=== PATIENT | male | born 1970 | race Two or more races ===

== ENCOUNTER 2023-05-23 17:00 | Inpatient (IN) | payer MEDICAID ==
[~2023-05-23] VITALS: Ht 170.2 cm; Wt 79.6 kg
[~2023-05-23 17:00] MED LIST: CIP03OS EACHEYE
[2023-05-23 18:40] LABS: Alanine Aminotransferase 22 U/L (7-40); Albumin 3.2 g/dL (3.2-4.8); Alkaline Phosphatase 157 U/L (46-116); Anion Gap 7 (5-15); Aspartate Aminotransferase 23 U/L (13-40); BUN/Creatinine Ratio 5.7 (10.0-20.0); Blood Urea Nitrogen 65 mg/dL (9-23); Calcium 6.9 mg/dL (8.7-10.4); Carbon Dioxide 22 mmol/L (20-30); Chloride 109 mmol/L (98-107); Glucose 152 mg/dL (74-106); Magnesium 2.2 mg/dL (1.6-2.6); Potassium 5.5 mmol/L (3.5-5.1); Sodium 138 mmol/L (136-145)
[2023-05-23 18:41] LABS: Bilirubin, Total 0.3 mg/dL (0.2-1.0); Total Protein 5.5 g/dL (5.7-8.2)
[2023-05-23 18:45] LABS: Basophils # (auto) 0.1 10 ^3/uL (0-0.2); Basophils % (auto) 0.7 % (0.0-2.0); Eosinophils # (auto) 0.4 10 ^3/uL (0-0.8); Eosinophils % (auto) 4.4 % (0.0-7.0); Hematocrit 35.2 % (41.0-53.0); Hemoglobin 11.9 g/dL (13.5-17.5); Lymphocytes % (auto) 11.5 % (10.0-50.0); Mean Corpuscular Hemoglobin 30.6 pg (28.0-32.0); Mean Corpuscular Hgb Conc. 33.7 g/dL (32.0-36.0); Mean Corpuscular Volume 90.6 fL (80.0-100.0); Monocytes # (auto) 0.3 10 ^3/uL (0-1.3); Monocytes % (auto) 3.8 % (0.0-12.0); Neutrophils # (auto) 6.8 10 ^3/uL (1.6-8.6); Neutrophils % (auto) 79.6 % (37.0-80.0); Nucleated Red Blood Cells % 0.1 %; Red Blood Cells 3.88 10^6/uL (4.5-5.90); White Blood Cell 8.6 10^3/uL (4.4-10.8)
[2023-05-23] MEDS ORDERED: cefTRIAXone 1GM/50ML D5W 50 ML IV ONE (18:45)
[2023-05-23 18:49] LABS: INR 1.03 (0.9-1.15); Partial Thromboplastin Time 28.2 SEC (24.5-34.5); Prothrombin Time 10.8 sec (9.3-11.8)
[2023-05-23] MEDS ORDERED: FUROSEMIDE 100 MG/10ML VIAL IV ONE (19:00)
[2023-05-23] MEDS ORDERED: DEXTROSE (50%) 50ML SYRG IV PRN (20:15)
[2023-05-23] MEDS ORDERED: MORPHINE SULFATE INJ 2 MG/ml SYRG IV PRN (20:15)
[2023-05-23] MEDS ORDERED: NITROGLYCERIN 0.4 MG SL TAB SL PRN (20:15)
[2023-05-23] MEDS ORDERED: METOPROLOL TARTRATE 25 MG TAB PO ONE (20:30)
[2023-05-23 21:22] LABS: Erythrocyte Sedimentation Rate 91 mm/hr (0-20)
[2023-05-23] MEDS: ACCU-CHEK COMFORT CURVE STRIP VI SCH (23:51)
[2023-05-23] MEDS: InsuLIN REG 1unit/0.01ml Soln (100units/ml) SC SCH (23:57)
[2023-05-24] VITALS (8 sets, daily range): BP systolic 164–173; BP diastolic 94–110; PULSE 17–97; RESP 14–22; TEMP 97.7–98.5; O2SAT 94–98
[2023-05-24] MEDS: hydrALAZINE HCL 20 MG/ML VL IV PRN ×3 (02:18→23:16)
[2023-05-24 05:54] LABS: Basophils # (auto) 0.1 10 ^3/uL (0-0.2); Basophils % (auto) 0.6 % (0.0-2.0); Eosinophils # (auto) 1.2 10 ^3/uL (0-0.8); Eosinophils % (auto) 12.4 % (0.0-7.0); Hematocrit 33.5 % (41.0-53.0); Hemoglobin 11.2 g/dL (13.5-17.5); Lymphocytes # (auto) 0.8 10 ^3/uL (0.4-5.4); Lymphocytes % (auto) 8.8 % (10.0-50.0); Mean Corpuscular Hemoglobin 30.4 pg (28.0-32.0); Mean Corpuscular Hgb Conc. 33.6 g/dL (32.0-36.0); Mean Corpuscular Volume 90.6 fL (80.0-100.0); Monocytes # (auto) 0.5 10 ^3/uL (0-1.3); Monocytes % (auto) 5.1 % (0.0-12.0); Neutrophils # (auto) 6.9 10 ^3/uL (1.6-8.6); Neutrophils % (auto) 73.1 % (37.0-80.0); Red Blood Cells 3.69 10^6/uL (4.5-5.90); Red Cell Distribution Width 13.6 % (11.8-14.3); White Blood Cell 9.5 10^3/uL (4.4-10.8)
[2023-05-24] MEDS ORDERED: FUROSEMIDE 20 MG/2 ML VIAL IV SCH (06:00)
[2023-05-24 06:11] LABS: Alanine Aminotransferase 16 U/L (7-40); Albumin 3.1 g/dL (3.2-4.8); Alkaline Phosphatase 133 U/L (46-116); Anion Gap 8 (5-15); Aspartate Aminotransferase 19 U/L (13-40); BUN/Creatinine Ratio 5.3 (10.0-20.0); Blood Urea Nitrogen 62 mg/dL (9-23); Carbon Dioxide 22 mmol/L (20-30); Chloride 109 mmol/L (98-107); Glucose 81 mg/dL (74-106); Potassium 4.4 mmol/L (3.5-5.1); Sodium 139 mmol/L (136-145)
[2023-05-24 06:12] LABS: Bilirubin, Total 0.2 mg/dL (0.2-1.0); Total Protein 5.5 g/dL (5.7-8.2)
[2023-05-24 06:55] LABS: Triglycerides 134 mg/dL (< 150)
[2023-05-24 06:56] LABS: Cholesterol 226 mg/dL (< 200); LDL Cholesterol 166 mg/dL (< 100)
[2023-05-24 06:57] LABS: HDL Cholesterol 39 mg/dL (40-59)
[2023-05-24] MEDS: ACCU-CHEK COMFORT CURVE STRIP VI SCH ×4 (06:58→22:14)
[2023-05-24] MEDS: InsuLIN REG 1unit/0.01ml Soln (100units/ml) SC SCH ×4 (06:59→22:00)
[2023-05-24] MEDS ORDERED: ATORVASTATIN 20 MG TAB PO ONE (10:00)
[2023-05-24] MEDS ORDERED: LISINOPRIL 10 MG TAB PO SCH (10:00)
[2023-05-24] MEDS ORDERED: METOPROLOL TARTRATE 25 MG TAB PO SCH (10:00)
[2023-05-24] MEDS: FAMOTIDINE 20 MG TAB PO SCH (10:10)
[2023-05-24] MEDS: ENOXAPARIN SOD 30 MG/0.3 ML SYRINGE SC SCH (10:12)
[2023-05-24 10:18] LABS: Creatinine, Urine 58.45 mg/dL (30.0-125.0)
[2023-05-24 10:21] LABS: Protein, Urine 733.7 mg/dL (0.0-11.9)
[2023-05-24] MEDS ORDERED: LISINOPRIL 10 MG TAB PO ONE (14:30)
[2023-05-24 15:06] LABS: Urine Bacteria NONE SEEN /hpf (None Seen); Urine Blood 1+ /uL (Negative); Urine Clarity Clear (Clear); Urine Color Colorless (Yellow); Urine Mucus FEW (None Seen); Urine Protein, UAD 3+ (Negative); Urine Specific Gravity 1.012 (1.001-1.035); Urine Urobilinogen Normal (Negative); Urine WBC 2 /hpf (0 - 3); Urine pH 6.5 (5.0-8.0)
[2023-05-24] MEDS: FUROSEMIDE 20 MG/2 ML VIAL IV SCH (18:22)
[2023-05-24] MEDS: ATORVASTATIN 20 MG TAB PO SCH (22:13)
[2023-05-24] MEDS: METOPROLOL TARTRATE 25 MG TAB PO SCH (22:14)
[2023-05-25] VITALS (7 sets, daily range): BP systolic 137–167; BP diastolic 85–98; PULSE 74–83; RESP 18–20; TEMP 97.7–98.4; O2SAT 96–98
[2023-05-25 06:01] LABS: Basophils # (auto) 0.1 10 ^3/uL (0-0.2); Basophils % (auto) 0.6 % (0.0-2.0); Eosinophils # (auto) 1.1 10 ^3/uL (0-0.8); Eosinophils % (auto) 13.7 % (0.0-7.0); Hematocrit 31.7 % (41.0-53.0); Hemoglobin 10.7 g/dL (13.5-17.5); Lymphocytes # (auto) 1.4 10 ^3/uL (0.4-5.4); Lymphocytes % (auto) 17.3 % (10.0-50.0); Mean Corpuscular Hemoglobin 30.3 pg (28.0-32.0); Mean Corpuscular Hgb Conc. 33.7 g/dL (32.0-36.0); Mean Corpuscular Volume 90.1 fL (80.0-100.0); Monocytes # (auto) 0.6 10 ^3/uL (0-1.3); Monocytes % (auto) 7.4 % (0.0-12.0); Neutrophils # (auto) 4.9 10 ^3/uL (1.6-8.6); Red Blood Cells 3.52 10^6/uL (4.5-5.90); White Blood Cell 8.1 10^3/uL (4.4-10.8)
[2023-05-25 06:14] LABS: Anion Gap 9 (5-15); Carbon Dioxide 20 mmol/L (20-30); Chloride 109 mmol/L (98-107); Potassium 4.7 mmol/L (3.5-5.1); Sodium 138 mmol/L (136-145)
[2023-05-25 06:16] LABS: % Iron Saturation 25.8 % (20-55)
[2023-05-25 06:20] LABS: BUN/Creatinine Ratio 5.3 (10.0-20.0); Blood Urea Nitrogen 63 mg/dL (9-23); Glucose 91 mg/dL (74-106)
[2023-05-25 06:21] LABS: Magnesium 1.8 mg/dL (1.6-2.6)
[2023-05-25 06:22] LABS: Phosphorus 6.2 mg/dL (2.4-5.1)
[2023-05-25] MEDS: FUROSEMIDE 20 MG/2 ML VIAL IV SCH ×2 (06:27→18:00)
[2023-05-25] MEDS: ACCU-CHEK COMFORT CURVE STRIP VI SCH ×4 (06:42→21:57)
[2023-05-25] MEDS: InsuLIN REG 1unit/0.01ml Soln (100units/ml) SC SCH ×4 (06:42→22:21)
[2023-05-25 08:06] LABS: Complement C3 132 mg/dL (82-167)
[2023-05-25] MEDS: SEVELAMER 800 MG TAB PO SCH ×3 (09:12→17:59)
[2023-05-25] MEDS: LISINOPRIL 20 MG TAB PO SCH (10:20)
[2023-05-25] MEDS: METOPROLOL TARTRATE 25 MG TAB PO SCH (10:21)
[2023-05-25] MEDS: ENOXAPARIN SOD 30 MG/0.3 ML SYRINGE SC SCH (10:22)
[2023-05-25] MEDS ORDERED: CARVEDILOL 3.125 MG TAB PO ONE (10:30)
[2023-05-25 12:06] LABS: Anti-Centromere B Antibody <0.2 AI (0.0-0.9); Anti-Jo-1 Antibody <0.2 AI (0.0-0.9); Anti-dsDNA Antibody 2 IU/mL (0-9); Antichromatin Antibody 0.2 AI (0.0-0.9); Antiscleroderma-70 Antibody <0.2 AI (0.0-0.9); RNP Antibody <0.2 AI (0.0-0.9); Sjogren's Anti-SS-A Antibody <0.2 AI (0.0-0.9); Sjogren's Anti-SS-B Antibody <0.2 AI (0.0-0.9); Smith Antibody <0.2 AI (0.0-0.9)
[2023-05-25 12:34] LABS: Hepatitis B Surface Antigen Negative (Negative)
[2023-05-25] MEDS: NIFEdipine ER 30 MG TAB PO SCH ×2 (12:50→22:19)
[2023-05-25 12:53] LABS: Hepatitis A Ab IgM Negative; Hepatitis B Core IgM Negative
[2023-05-25 12:55] LABS: Hepatitis C Antibody Negative (Negative)
[2023-05-25] MEDS: SODIUM BICARBONATE 650 MG TAB PO SCH ×2 (16:42→22:20)
[2023-05-25] MEDS: CARVEDILOL 3.125 MG TAB PO SCH (22:20)
[2023-05-25] MEDS: ATORVASTATIN 20 MG TAB PO SCH (22:20)
[2023-05-26] VITALS (8 sets, daily range): BP systolic 113–139; BP diastolic 56–83; PULSE 72–79; RESP 16–20; TEMP 97.3–98.2; O2SAT 94–97
[2023-05-26] MEDS: ACCU-CHEK COMFORT CURVE STRIP VI SCH ×4 (06:01→22:51)
[2023-05-26] MEDS: FUROSEMIDE 20 MG/2 ML VIAL IV SCH ×2 (06:01→17:45)
[2023-05-26] MEDS: InsuLIN REG 1unit/0.01ml Soln (100units/ml) SC SCH ×4 (06:04→22:00)
[2023-05-26 06:22] LABS: Anion Gap 9 (5-15); Carbon Dioxide 21 mmol/L (20-30); Chloride 106 mmol/L (98-107); Potassium 4.4 mmol/L (3.5-5.1); Sodium 136 mmol/L (136-145)
[2023-05-26 06:24] LABS: Calcium 7.1 mg/dL (8.7-10.4)
[2023-05-26 06:28] LABS: Glucose 85 mg/dL (74-106)
[2023-05-26 06:29] LABS: BUN/Creatinine Ratio 5.3 (10.0-20.0); Blood Urea Nitrogen 65 mg/dL (9-23); Magnesium 1.9 mg/dL (1.6-2.6)
[2023-05-26 06:45] LABS: Hematocrit 33.6 % (41.0-53.0); Hemoglobin 11.2 g/dL (13.5-17.5); Mean Corpuscular Hgb Conc. 33.2 g/dL (32.0-36.0); Mean Corpuscular Volume 90.4 fL (80.0-100.0); Red Blood Cells 3.72 10^6/uL (4.5-5.90); Red Cell Distribution Width 13.7 % (11.8-14.3); White Blood Cell 8.1 10^3/uL (4.4-10.8)
[2023-05-26 07:48] LABS: Band Neutrophils % (manual) 0; Basophils % (manual) 0 (0.0-2.0); Blast Cells 0; Metamyelocytes % 0; Myelocytes % 0; Promyelocytes % 0; Reactive Lymphocytes 0
[2023-05-26] MEDS: LISINOPRIL 20 MG TAB PO SCH (10:36)
[2023-05-26] MEDS: SODIUM BICARBONATE 650 MG TAB PO SCH ×2 (10:36→22:57)
[2023-05-26] MEDS: SEVELAMER 800 MG TAB PO SCH ×3 (10:37→17:44)
[2023-05-26] MEDS: NIFEdipine ER 30 MG TAB PO SCH ×2 (10:37→22:43)
[2023-05-26] MEDS: CARVEDILOL 3.125 MG TAB PO SCH ×2 (10:37→22:59)
[2023-05-26] MEDS: FAMOTIDINE 20 MG TAB PO SCH (10:37)
[2023-05-26] MEDS: ENOXAPARIN SOD 30 MG/0.3 ML SYRINGE SC SCH (10:38)
[2023-05-26 11:06] LABS: Albumin 1.8 g/dL (2.9-4.4); Alpha-1-Globulin 0.2 g/dL (0.0-0.4); Alpha-2-Globulin 0.7 g/dL (0.4-1.0); Gamma Globulin 0.7 g/dL (0.4-1.8); Globulin Total 2.5 g/dL (2.2-3.9); Protein Total Serum 4.3 g/dL (6.0-8.5)
[2023-05-26 12:56] LABS: Eosinophils % (manual) 16 (0-7); Lymphocytes % (manual) 12 (10.0-50.0); Monocytes % (manual) 4 (0-12); Platelet Estimate Adequate
[2023-05-26 14:05] LABS: Cytoplasmic (C-ANCA) <1:20 titer (Neg:<1:20); Perinuclear (P-ANCA) <1:20 titer (Neg:<1:20)
[2023-05-26 17:05] LABS: Antimyeloperoxidase (MPO) Ab <0.2 units (0.0-0.9); Antiproteinase 3 (PR-3) Ab <0.2 units (0.0-0.9)
[2023-05-26] MEDS: ATORVASTATIN 20 MG TAB PO SCH (22:43)
[2023-05-27 05:00] VITALS: BP 113/64; PULSE 79; RESP 16; TEMP 98; O2SAT 96
[2023-05-27] MEDS: FUROSEMIDE 20 MG/2 ML VIAL IV SCH (05:35)
[2023-05-27] MEDS: ACCU-CHEK COMFORT CURVE STRIP VI SCH ×2 (05:45→12:00)
[2023-05-27] MEDS: InsuLIN REG 1unit/0.01ml Soln (100units/ml) SC SCH ×2 (05:48→12:02)
[2023-05-27 06:01] LABS: Hematocrit 28.3 % (41.0-53.0); Hemoglobin 9.7 g/dL (13.5-17.5); Mean Corpuscular Hemoglobin 30.5 pg (28.0-32.0); Mean Corpuscular Hgb Conc. 34.2 g/dL (32.0-36.0); Mean Corpuscular Volume 89.2 fL (80.0-100.0); Red Blood Cells 3.17 10^6/uL (4.5-5.90); Red Cell Distribution Width 13.4 % (11.8-14.3); White Blood Cell 8.6 10^3/uL (4.4-10.8)
[2023-05-27 06:10] LABS: Anion Gap 8 (5-15); Band Neutrophils % (manual) 0; Basophils % (manual) 0 (0.0-2.0); Blast Cells 0; Carbon Dioxide 22 mmol/L (20-30); Chloride 105 mmol/L (98-107); Metamyelocytes % 0; Myelocytes % 0; Potassium 4.5 mmol/L (3.5-5.1); Promyelocytes % 0; Reactive Lymphocytes 0; Sodium 135 mmol/L (136-145)
[2023-05-27 06:11] LABS: Calcium 6.7 mg/dL (8.7-10.4)
[2023-05-27 06:16] LABS: BUN/Creatinine Ratio 5.4 (10.0-20.0); Blood Urea Nitrogen 67 mg/dL (9-23); Glucose 105 mg/dL (74-106)
[2023-05-27 06:17] LABS: Magnesium 1.8 mg/dL (1.6-2.6)
[2023-05-27 06:19] LABS: Phosphorus 5.7 mg/dL (2.4-5.1)
[2023-05-27 06:30] LABS: Eosinophils % (manual) 21 (0-7); Lymphocytes % (manual) 24 (10.0-50.0); Monocytes % (manual) 4 (0-12); Platelet Estimate Adequate
[2023-05-27 08:00] VITALS: BP 135/84; PULSE 77; PULSE 81; RESP 20; TEMP 98.2; O2SAT 95
[2023-05-27] MEDS: SEVELAMER 800 MG TAB PO SCH ×2 (08:49→12:00)
[2023-05-27] MEDS: CARVEDILOL 3.125 MG TAB PO SCH (08:50)
[2023-05-27] MEDS: LISINOPRIL 20 MG TAB PO SCH (08:51)
[2023-05-27] MEDS: ENOXAPARIN SOD 30 MG/0.3 ML SYRINGE SC SCH (08:51)
[2023-05-27] MEDS: NIFEdipine ER 30 MG TAB PO SCH (08:51)
[2023-05-27] MEDS: SODIUM BICARBONATE 650 MG TAB PO SCH (08:51)
[2023-05-27] MEDS ORDERED: FURO1TAB31 PO (10:56)
[2023-05-27] MEDS ORDERED: CAR3125T PO (10:56)
[2023-05-27] MEDS ORDERED: LISI20TA56 PO (10:56)
[2023-05-27] MEDS ORDERED: ATO40T PO (10:56)
[2023-05-27] MEDS ORDERED: NIFE1TAB30 PO (10:56)
[2023-05-27] MEDS ORDERED: SEVE800T PO (11:58)
[2023-05-27 13:00] VITALS: BP 134/86; PULSE 75; RESP 20; TEMP 97.3; O2SAT 99
[2023-05-27 17:00] VITALS: BP 129/66; PULSE 56; RESP 18; TEMP 97.5; O2SAT 98
== END 2023-05-27 17:30 | disposition home or self-care (01) | DRG 194 ==
LOC: ER 17:00 → TELE 20:12 → TELE-EAST 05-24 11:03
PROVIDERS: ADMIT Internal Medicine; ATTEND Student in an Organized Health Care Education/Training Program
DX: I13.2 Hypertensive heart and chronic kidney disease with heart failure and with stage 5 chronic kidney disease, or end stage renal disease (principal); N17.0 Acute kidney failure with tubular necrosis; J18.9 Pneumonia, unspecified organism; N18.6 End stage renal disease; J91.8 Pleural effusion in other conditions classified elsewhere; E83.39 Other disorders of phosphorus metabolism; E11.22 Type 2 diabetes mellitus with diabetic chronic kidney disease; I50.23 Acute on chronic systolic (congestive) heart failure; I16.1 Hypertensive emergency; R80.9 Proteinuria, unspecified; R10.9 Unspecified abdominal pain; I37.1 Nonrheumatic pulmonary valve insufficiency; E78.5 Hyperlipidemia, unspecified; E03.9 Hypothyroidism, unspecified; E87.5 Hyperkalemia; Z83.3 Family history of diabetes mellitus; Z82.49 Family history of ischemic heart disease and other diseases of the circulatory system; Z80.51 Family history of malignant neoplasm of kidney
CPT/HCPCS: 36415; 71045; 74176; 76775; 80048; 80053; 80061; 80074; 81001; 82570; 82962; 83036; 83516; 83520; 83540; 83550; 83605; 83735; 83880; 83935; 83970; 84100; 84155; 84156; 84165; 84300; 84443; 84484; 85007; 85025; 85027; 85610; 85652; 85730; 86141; 86160; 86225; 86235; 86256; 93005; 93306; 93970; G0378; J0696; J1815

== ENCOUNTER 2023-09-15 08:44 | Inpatient (IN) | payer MEDICAID ==
[~2023-09-15] VITALS: Ht 167.6 cm; Wt 67.5 kg
[~2023-09-15 08:44] MED LIST changes: +ATO40T PO; +CAR3125T PO; +FURO1TAB31 PO; +LISI20TA56 PO; +NIFE1TAB30 PO; +SEVE800T PO
[2023-09-15 09:34] LABS: Hemoglobin 9.4 g/dL (13.5-17.5); Mean Corpuscular Hemoglobin 30.9 pg (28.0-32.0); Mean Corpuscular Hgb Conc. 33.7 g/dL (32.0-36.0); Mean Corpuscular Volume 91.7 fL (80.0-100.0); Red Blood Cells 3.05 10^6/uL (4.5-5.90); Red Cell Distribution Width 15.1 % (11.8-14.3); White Blood Cell 5.7 10^3/uL (4.4-10.8)
[2023-09-15 09:39] LABS: Band Neutrophils % (manual) 0; Basophils % (manual) 0 (0.0-2.0); Blast Cells 0; Metamyelocytes % 0; Myelocytes % 0; Promyelocytes % 0; Reactive Lymphocytes 0
[2023-09-15 10:01] LABS: Urine Bacteria NONE SEEN /hpf (None Seen); Urine Blood 2+ /uL (Negative); Urine Clarity Clear (Clear); Urine Color Yellow (Yellow); Urine Hyaline Cast FEW /lpf (0 - 2); Urine Protein, UAD 3+ (Negative); Urine Specific Gravity 1.018 (1.001-1.035); Urine Urobilinogen Normal (Negative); Urine WBC 2 /hpf (0 - 3); Urine pH 6.5 (5.0-8.0)
[2023-09-15 10:15] LABS: Alanine Aminotransferase 13 U/L (7-40); Alkaline Phosphatase 93 U/L (46-116); Anion Gap 15 (5-15); Aspartate Aminotransferase 23 U/L (13-40); BUN/Creatinine Ratio 6.9 (10.0-20.0); Bilirubin, Total 0.2 mg/dL (0.2-1.0); Calcium 8.4 mg/dL (8.5-10.1); Carbon Dioxide 15 mmol/L (20-30); Chloride 106 mmol/L (98-107); Glucose 76 mg/dL (74-106); Sodium 136 mmol/L (136-145); Total Protein 5.9 g/dL (5.7-8.2)
[2023-09-15 10:33] LABS: Blood Urea Nitrogen 125 mg/dL (9-23); Potassium 6.3 mmol/L (3.5-5.1)
[2023-09-15] MEDS ORDERED: InsuLIN REG 1unit/0.01ml Soln (100units/ml) IV ONE (11:15)
[2023-09-15] MEDS ORDERED: SODIUM BICARBONATE 8.4% INJ 50ML SYRINGE IV ONE (11:15)
[2023-09-15] MEDS ORDERED: ASPirin 81 mg TAB PO ONE (11:15)
[2023-09-15] MEDS ORDERED: CALCIUM GLUC 1,000mg/50ml-NS 50 ML IV ONE (11:15)
[2023-09-15] MEDS ORDERED: ALBUTEROL SULF 2.5 MG/0.5ML(0.5%) NEB SOLN NEB ONE (11:15)
[2023-09-15] MEDS ORDERED: FUROSEMIDE 40 MG/4 ML VIAL IV ONE (11:15)
[2023-09-15] MEDS ORDERED: NITROGLYCERIN 0.4MG/HR TOPICAL PATCH TD ONE (11:15)
[2023-09-15] MEDS ORDERED: DEXTROSE (50%) 50ML SYRG IV ONE (11:15)
[2023-09-15] MEDS ORDERED: ONDANSETRON HCL 4 MG/2 ML VIAL IV ONE (11:15)
[2023-09-15] MEDS ORDERED: SODIUM ZIRCONIUM CYCL 10 GM PAK PO ONE (11:15)
[2023-09-15] MEDS ORDERED: MORPHINE SULFATE 4 MG/ML SYR/VIAL IV PRN (11:15)
[2023-09-15 11:20] LABS: Eosinophils % (manual) 9 (0-7); Lymphocytes % (manual) 15 (10.0-50.0); Monocytes % (manual) 4 (0-12)
[2023-09-15 11:21] LABS: Platelet Estimate Decreased
[2023-09-15 12:00] VITALS: PULSE 91; RESP 13; O2SAT 97
[2023-09-15 12:17] LABS: Amphetamine Screen, Urine Neg (NEGATIVE); Barbiturate Scree,Urine Neg (NEGATIVE); Benzodiazephine Screen, Urine Neg (NEGATIVE)
[2023-09-15 12:18] LABS: Cannabinoid Screen, Urine Neg (NEGATIVE); Cocaine Screen, Urine Neg (NEGATIVE); Opiate Scree,Urine Neg (NEGATIVE); Phencyclidine Screen, Urine Neg (NEGATIVE)
[2023-09-15 12:18] LABS: Blood Alcohol 3.6 mg/dL (<10)
[2023-09-15] MEDS ORDERED: levoFLOXacin 500MG 100 ML IV ONE (12:45)
[2023-09-15] MEDS ORDERED: CLINDAMYCIN 600MG IV 50 ML IV ONE (12:45)
[2023-09-15 12:46] LABS: INR 1.08 (0.9-1.15); Partial Thromboplastin Time 33.3 SEC (24.5-34.5); Prothrombin Time 11.3 sec (9.3-11.8)
[2023-09-15 12:54] LABS: Magnesium 2.7 mg/dL (1.6-2.6)
[2023-09-15] MEDS ORDERED: NIFEdipine ER 30 MG TAB PO ONE (15:30)
[2023-09-15] MEDS ORDERED: NITROGLYCERIN 0.4 MG SL TAB SL PRN (15:30)
[2023-09-15] MEDS ORDERED: MORPHINE SULFATE INJ 2 MG/ml SYRG IV PRN (15:30)
[2023-09-15 15:37] LABS: Anion Gap 17 (5-15); Carbon Dioxide 13 mmol/L (20-30); Chloride 107 mmol/L (98-107); Sodium 137 mmol/L (136-145)
[2023-09-15 15:38] LABS: Calcium 7.8 mg/dL (8.5-10.1)
[2023-09-15 15:43] LABS: BUN/Creatinine Ratio 6.9 (10.0-20.0); Glucose 139 mg/dL (74-106)
[2023-09-15 15:47] LABS: Potassium 5.7 mmol/L (3.5-5.1)
[2023-09-15 15:48] LABS: Blood Urea Nitrogen 126 mg/dL (9-23)
[2023-09-15] MEDS: SEVELAMER 800 MG TAB PO SCH (18:36)
[2023-09-15] MEDS: FUROSEMIDE 40 MG/4 ML VIAL IV SCH (18:36)
[2023-09-15 19:42] VITALS: PULSE 74; RESP 16; O2SAT 96
[2023-09-15] MEDS ORDERED: ENOXAPARIN SOD 30 MG/0.3 ML SYRINGE SC ONE (22:15)
[2023-09-15] MEDS: ATORVASTATIN 20 MG TAB PO SCH (22:47)
[2023-09-15] MEDS: CARVEDILOL 3.125 MG TAB PO SCH (22:47)
[2023-09-15 22:48] LABS: Chloride 109 mmol/L (98-107); Sodium 138 mmol/L (136-145)
[2023-09-15 22:49] LABS: Anion Gap 15 (5-15); Carbon Dioxide 14 mmol/L (20-30)
[2023-09-15 22:50] LABS: Calcium 7.8 mg/dL (8.5-10.1)
[2023-09-15 22:54] LABS: BUN/Creatinine Ratio 6.8 (10.0-20.0); Glucose 57 mg/dL (74-106)
[2023-09-15 23:09] LABS: Blood Urea Nitrogen 125 mg/dL (9-23); Potassium 5.9 mmol/L (3.5-5.1)
[2023-09-16] VITALS (9 sets, daily range): BP systolic 90–166; BP diastolic 44–90; PULSE 54–73; RESP 16–20; TEMP 97.5–99; O2SAT 95–99
[2023-09-16] MEDS: FUROSEMIDE 40 MG/4 ML VIAL IV SCH ×2 (06:06→17:57)
[2023-09-16 07:06] LABS: Basophils # (auto) 0 10 ^3/uL (0-0.2); Eosinophils # (auto) 0.3 10 ^3/uL (0-0.8); Lymphocytes # (auto) 0.3 10 ^3/uL (0.4-5.4); Mean Corpuscular Hgb Conc. 33.4 g/dL (32.0-36.0); Monocytes # (auto) 0.2 10 ^3/uL (0-1.3); Monocytes % (auto) 3.5 % (0.0-12.0); Red Blood Cells 2.44 10^6/uL (4.5-5.90)
[2023-09-16 07:09] LABS: Basophils % (auto) 0.2 % (0.0-2.0); Eosinophils % (auto) 5.5 % (0.0-7.0); Hemoglobin 7.4 g/dL (13.5-17.5); Lymphocytes % (auto) 6.7 % (10.0-50.0); Mean Corpuscular Hemoglobin 30.1 pg (28.0-32.0); Mean Corpuscular Volume 90.2 fL (80.0-100.0); Neutrophils # (auto) 4.3 10 ^3/uL (1.6-8.6); Neutrophils % (auto) 84.1 % (37.0-80.0); Red Cell Distribution Width 14.8 % (11.8-14.3); White Blood Cell 5.1 10^3/uL (4.4-10.8)
[2023-09-16 07:17] LABS: Alanine Aminotransferase 13 U/L (7-40); Albumin 2.5 g/dL (3.2-4.8); Alkaline Phosphatase 77 U/L (46-116); Aspartate Aminotransferase 18 U/L (13-40); BUN/Creatinine Ratio 6.9 (10.0-20.0); Calcium 7.8 mg/dL (8.5-10.1); Chloride 109 mmol/L (98-107); Cholesterol 161 mg/dL (< 200); Creatine Kinase IFCC 318 U/L (46-171); LDL Cholesterol 102 mg/dL (< 100); Sodium 138 mmol/L (136-145); Triglycerides 112 mg/dL (< 150)
[2023-09-16 07:18] LABS: Bilirubin, Direct < 0.1 mg/dL (<0.3); Bilirubin, Total 0.2 mg/dL (0.2-1.0); HDL Cholesterol 26 mg/dL (40-59); Total Protein 4.9 g/dL (5.7-8.2)
[2023-09-16 07:19] LABS: % Iron Saturation 28.3 % (20-55)
[2023-09-16 07:36] LABS: Blood Urea Nitrogen 128 mg/dL (9-23); Glucose 45 mg/dL (74-106); Potassium 6.1 mmol/L (3.5-5.1)
[2023-09-16] MEDS ORDERED: CALCIUM GLUC 1,000mg/50ml-NS 50 ML IV ONE (08:00)
[2023-09-16] MEDS ORDERED: SODIUM ZIRCONIUM CYCL 10 GM PAK PO ONE ×2 (08:00→09:30)
[2023-09-16 08:05] LABS: Anion Gap 14 (5-15); Carbon Dioxide 15 mmol/L (20-30)
[2023-09-16 08:07] LABS: Phosphorus 9.4 mg/dL (2.4-5.1)
[2023-09-16] MEDS: SODIUM ZIRCONIUM CYCL 10 GM PAK PO SCH (08:22)
[2023-09-16] MEDS: cefTRIAXone 1GM/50ML D5W 50 ML IV SCH (08:23)
[2023-09-16] MEDS: SEVELAMER 800 MG TAB PO SCH ×3 (08:24→17:54)
[2023-09-16] MEDS: ASPirin 81 mg TAB PO SCH (08:31)
[2023-09-16 09:14] LABS: Magnesium 2.6 mg/dL (1.6-2.6)
[2023-09-16] MEDS: DOXYCYCLINE 100MG/250ML 250 ML IV SCH ×2 (09:30→21:33)
[2023-09-16] MEDS ORDERED: NIFEdipine ER 30 MG TAB PO SCH (10:00)
[2023-09-16] MEDS ORDERED: ENOXAPARIN SOD 30 MG/0.3 ML SYRINGE SC SCH (10:00)
[2023-09-16 10:18] LABS: Rapid Influenza A Negative (Negative); Rapid Influenza B Negative (Negative)
[2023-09-16 10:19] LABS: COVID19 ANTIGEN SOFIA FIA NEGATIVE (NEGATIVE)
[2023-09-16] MEDS: CARVEDILOL 3.125 MG TAB PO SCH ×2 (11:13→21:34)
[2023-09-16] MEDS ORDERED: SODIUM CHL 0.9% 1000 ML BAG XX ONE (12:00)
[2023-09-16] MEDS: ATORVASTATIN 20 MG TAB PO SCH (21:34)
[2023-09-16] MEDS: HEPARIN SODIUM (PORCINE) 5000 UNITS/ML 1ML VIAL SC SCH (21:47)
[2023-09-17 05:00] VITALS: BP 161/87; PULSE 71; RESP 18; TEMP 98.3; O2SAT 96
[2023-09-17] MEDS: FUROSEMIDE 40 MG/4 ML VIAL IV SCH ×2 (05:41→18:04)
[2023-09-17 08:10] VITALS: BP 158/90; PULSE 70; PULSE 71; RESP 16; RESP 18; TEMP 98.4; O2SAT 98
[2023-09-17 09:00] VITALS: BP 155/87; PULSE 69; RESP 20; TEMP 98.4; O2SAT 96
[2023-09-17 09:10] LABS: White Blood Cell 6.8 10^3/uL (4.4-10.8)
[2023-09-17 09:12] LABS: Hematocrit 21.8 % (41.0-53.0); Hemoglobin 7.2 g/dL (13.5-17.5); Mean Corpuscular Hemoglobin 30.1 pg (28.0-32.0); Mean Corpuscular Hgb Conc. 33.2 g/dL (32.0-36.0); Mean Corpuscular Volume 90.7 fL (80.0-100.0); Red Blood Cells 2.41 10^6/uL (4.5-5.90); Red Cell Distribution Width 14.9 % (11.8-14.3)
[2023-09-17 09:15] LABS: Basophils % (manual) 0 (0.0-2.0); Blast Cells 0; Metamyelocytes % 0; Myelocytes % 0; Promyelocytes % 0; Reactive Lymphocytes 0
[2023-09-17 09:23] LABS: Chloride 106 mmol/L (98-107); Sodium 135 mmol/L (136-145)
[2023-09-17 09:24] LABS: Anion Gap 15 (5-15); Carbon Dioxide 14 mmol/L (20-30)
[2023-09-17 09:25] LABS: Calcium 7.3 mg/dL (8.5-10.1)
[2023-09-17 09:29] LABS: BUN/Creatinine Ratio 6.7 (10.0-20.0); Glucose 79 mg/dL (74-106)
[2023-09-17 09:35] LABS: Blood Urea Nitrogen 123 mg/dL (9-23); Potassium 6.6 mmol/L (3.5-5.1)
[2023-09-17 09:36] LABS: Band Neutrophils % (manual) 1; Eosinophils % (manual) 19 (0-7); Monocytes % (manual) 7 (0-12)
[2023-09-17 09:37] LABS: Lymphocytes % (manual) 8 (10.0-50.0)
[2023-09-17 09:38] LABS: Anisocytosis Slight; Platelet Estimate Decreased
[2023-09-17] MEDS: SEVELAMER 800 MG TAB PO SCH ×3 (09:38→18:03)
[2023-09-17] MEDS: ASPirin 81 mg TAB PO SCH (09:38)
[2023-09-17] MEDS: SODIUM ZIRCONIUM CYCL 10 GM PAK PO SCH (09:38)
[2023-09-17] MEDS: DOXYCYCLINE 100MG/250ML 250 ML IV SCH ×2 (09:39→22:00)
[2023-09-17] MEDS: CALCIUM W/VIT D (600MG/400IU) TAB PO SCH (09:39)
[2023-09-17] MEDS: cefTRIAXone 1GM/50ML D5W 50 ML IV SCH (09:39)
[2023-09-17] MEDS: NIFEdipine ER 30 MG TAB PO SCH (09:47)
[2023-09-17] MEDS: CARVEDILOL 3.125 MG TAB PO SCH ×2 (09:47→22:43)
[2023-09-17] MEDS ORDERED: SENNA 8.6 MG TAB PO PRN (10:00)
[2023-09-17] MEDS ORDERED: SENNA 8.6 MG TAB PO ONE (10:00)
[2023-09-17] MEDS ORDERED: CALCIUM GLUC 1,000mg/50ml-NS 50 ML IV ONE (10:00)
[2023-09-17 10:02] LABS: Magnesium 2.5 mg/dL (1.6-2.6)
[2023-09-17] MEDS: ONDANSETRON HCL 4 MG/2 ML VIAL IV PRN ×3 (10:05→23:14)
[2023-09-17] MEDS ORDERED: FUROSEMIDE 40 MG/4 ML VIAL IV ONE (10:15)
[2023-09-17] MEDS: HEPARIN SODIUM (PORCINE) 5000 UNITS/ML 1ML VIAL SC SCH ×2 (10:16→22:51)
[2023-09-17 13:00] VITALS: BP 163/92; PULSE 71; RESP 20; TEMP 97.2; O2SAT 97
[2023-09-17 20:00] VITALS: PULSE 68; PULSE 84; RESP 16; O2SAT 92
[2023-09-17 22:00] VITALS: BP 149/91; PULSE 69; RESP 16; TEMP 97.9; O2SAT 94
[2023-09-17] MEDS: ATORVASTATIN 20 MG TAB PO SCH (22:45)
[2023-09-18] VITALS (7 sets, daily range): BP systolic 111–158; BP diastolic 62–84; PULSE 61–72; RESP 16–19; TEMP 97–98.7; O2SAT 92–96
[2023-09-18 02:05] LABS: Immunoglobulin A 341 mg/dL (90-386); Immunoglobulin G, Serum 1070 mg/dL (603-1613); Immunoglobulin M 103 mg/dL (20-172)
[2023-09-18] MEDS: FUROSEMIDE 40 MG/4 ML VIAL IV SCH ×2 (05:22→18:15)
[2023-09-18 05:28] LABS: Hematocrit 23.8 % (41.0-53.0); Mean Corpuscular Hgb Conc. 33.4 g/dL (32.0-36.0); Mean Corpuscular Volume 89.8 fL (80.0-100.0); Red Blood Cells 2.65 10^6/uL (4.5-5.90); Red Cell Distribution Width 14.7 % (11.8-14.3); White Blood Cell 5.2 10^3/uL (4.4-10.8)
[2023-09-18 05:30] LABS: Basophils % (manual) 0 (0.0-2.0); Blast Cells 0; Chloride 105 mmol/L (98-107); Metamyelocytes % 0; Myelocytes % 0; Potassium 4.8 mmol/L (3.5-5.1); Promyelocytes % 0; Reactive Lymphocytes 0; Sodium 136 mmol/L (136-145)
[2023-09-18 05:31] LABS: Anion Gap 11 (5-15); Calcium 6.9 mg/dL (8.7-10.4); Carbon Dioxide 20 mmol/L (20-30)
[2023-09-18 05:36] LABS: BUN/Creatinine Ratio 7.3 (10.0-20.0); Glucose 104 mg/dL (74-106)
[2023-09-18 05:37] LABS: Magnesium 2.2 mg/dL (1.6-2.6)
[2023-09-18 06:53] LABS: Blood Urea Nitrogen 104 mg/dL (9-23)
[2023-09-18 07:44] LABS: Band Neutrophils % (manual) 1; Eosinophils % (manual) 13 (0-7); Lymphocytes % (manual) 11 (10.0-50.0); Monocytes % (manual) 5 (0-12)
[2023-09-18 07:45] LABS: Anisocytosis Slight; Platelet Estimate Decreased
[2023-09-18 09:06] LABS: Hepatitis B Core Total AB Negative (Negative)
[2023-09-18 09:43] LABS: Hepatitis A Total Antibody Positive (Negative); Hepatitis B Surface Antigen Negative (Negative); Hepatitis C Antibody Negative (Negative)
[2023-09-18 09:44] LABS: Hepatitis B Surface Antibody Negative (Negative)
[2023-09-18] MEDS: SODIUM ZIRCONIUM CYCL 10 GM PAK PO SCH (09:53)
[2023-09-18] MEDS: cefTRIAXone 1GM/50ML D5W 50 ML IV SCH (09:53)
[2023-09-18] MEDS: HEPARIN SODIUM (PORCINE) 5000 UNITS/ML 1ML VIAL SC SCH ×2 (09:53→22:00)
[2023-09-18] MEDS: DOXYCYCLINE 100 MG TAB/CAP PO SCH ×2 (09:53→21:14)
[2023-09-18] MEDS: ASPirin 81 mg TAB PO SCH (09:55)
[2023-09-18] MEDS: CALCIUM W/VIT D (600MG/400IU) TAB PO SCH (09:55)
[2023-09-18] MEDS: SEVELAMER 800 MG TAB PO SCH ×3 (09:56→18:15)
[2023-09-18] MEDS: NIFEdipine ER 30 MG TAB PO SCH (10:00)
[2023-09-18] MEDS: CARVEDILOL 3.125 MG TAB PO SCH ×2 (10:00→21:18)
[2023-09-18] MEDS ORDERED: SODIUM CHL 0.9% 1000 ML BAG XX ONE (10:45)
[2023-09-18] MEDS: IRON SUCROSE COMPLEX 100 ML IV SCH (12:00)
[2023-09-18] MEDS ORDERED: EPOETIN ALFA-EPBX 10,000 UNIT/1ML VIAL SC ONE (21:00)
[2023-09-18] MEDS: ATORVASTATIN 20 MG TAB PO SCH (21:14)
[2023-09-19] VITALS (11 sets, daily range): BP systolic 148–180; BP diastolic 70–101; PULSE 59–76; RESP 11–20; TEMP 97.5–99; O2SAT 92–100
[2023-09-19] MEDS: FUROSEMIDE 40 MG/4 ML VIAL IV SCH ×2 (05:15→16:57)
[2023-09-19 05:51] LABS: Hematocrit 23.3 % (41.0-53.0); Hemoglobin 7.8 g/dL (13.5-17.5); White Blood Cell 5.5 10^3/uL (4.4-10.8)
[2023-09-19 05:55] LABS: Mean Corpuscular Hemoglobin 29.6 pg (28.0-32.0); Mean Corpuscular Hgb Conc. 33.3 g/dL (32.0-36.0); Mean Corpuscular Volume 88.8 fL (80.0-100.0); Red Blood Cells 2.62 10^6/uL (4.5-5.90); Red Cell Distribution Width 14.7 % (11.8-14.3)
[2023-09-19 05:58] LABS: Band Neutrophils % (manual) 0; Basophils % (manual) 0 (0.0-2.0); Blast Cells 0; Metamyelocytes % 0; Myelocytes % 0; Promyelocytes % 0; Reactive Lymphocytes 0
[2023-09-19 06:03] LABS: Chloride 104 mmol/L (98-107); Potassium 4.1 mmol/L (3.5-5.1); Sodium 137 mmol/L (136-145)
[2023-09-19 06:04] LABS: Anion Gap 8 (5-15); Calcium 7.1 mg/dL (8.7-10.4); Carbon Dioxide 25 mmol/L (20-30)
[2023-09-19 06:09] LABS: BUN/Creatinine Ratio 5.2 (10.0-20.0); Glucose 79 mg/dL (74-106)
[2023-09-19 06:10] LABS: Blood Urea Nitrogen 51 mg/dL (9-23); Magnesium 2.1 mg/dL (1.6-2.6)
[2023-09-19 06:14] LABS: % Iron Saturation 42.5 % (20-55)
[2023-09-19] MEDS ORDERED: SODIUM CHL 0.9% 1000 ML BAG XX ONE (07:00)
[2023-09-19 07:38] LABS: Eosinophils % (manual) 14 (0-7); Lymphocytes % (manual) 13 (10.0-50.0); Monocytes % (manual) 2 (0-12); Platelet Estimate Decreased
[2023-09-19] MEDS: SEVELAMER 800 MG TAB PO SCH ×3 (08:00→16:57)
[2023-09-19] MEDS: SODIUM ZIRCONIUM CYCL 10 GM PAK PO SCH (10:00)
[2023-09-19] MEDS: CALCIUM W/VIT D (600MG/400IU) TAB PO SCH (10:00)
[2023-09-19] MEDS: DOXYCYCLINE 100 MG TAB/CAP PO SCH ×2 (10:00→22:45)
[2023-09-19] MEDS: CARVEDILOL 3.125 MG TAB PO SCH ×2 (11:16→22:00)
[2023-09-19] MEDS: cloNIDine HCL 0.1 MG TAB PO SCH ×2 (11:16→22:45)
[2023-09-19] MEDS: IRON SUCROSE COMPLEX 100 ML IV SCH (12:00)
[2023-09-19] MEDS ORDERED: HEPARIN SODIUM (PORCINE) 5000 UNITS/ML 1ML VIAL ONE (13:22)
[2023-09-19] MEDS ORDERED: MIDAZOLAM HCL 2MG/2ML 2ml VIAL (1mg/ml) ONE (13:22)
[2023-09-19] MEDS ORDERED: LIDOCAINE 2%HCL (LOCAL ANESTH.) INJ 20ML MDV ONE (13:22)
[2023-09-19] MEDS ORDERED: fentaNYL CITRATE 100 MCG/2 ML VL ONE (13:22)
[2023-09-19] MEDS ORDERED: ceFAZolin 1GM/50ML 50 ML IV ONE (13:42)
[2023-09-19] MEDS ORDERED: ONDANSETRON HCL 4 MG/2 ML VIAL ONE (14:19)
[2023-09-19] MEDS ORDERED: ARGATROBAN 250 MG in SODIUM CHL 0.9% 248.5 ML IV SCH (14:45)
[2023-09-19] MEDS ORDERED: FAMOTIDINE (10MG/ML) 2ML VL IV ONE (14:45)
[2023-09-19 16:33] LABS: INR 1.17 (0.9-1.15); Partial Thromboplastin Time 34.4 SEC (24.5-34.5); Prothrombin Time 12.2 sec (9.3-11.8)
[2023-09-19] MEDS: cefTRIAXone 1GM/50ML D5W 50 ML IV SCH (16:45)
[2023-09-19] MEDS: NIFEdipine ER 30 MG TAB PO SCH (16:56)
[2023-09-19] MEDS ORDERED: ALBUMIN 25% 100 ML IV PRN (18:00)
[2023-09-19] MEDS ORDERED: HEPARIN SODIUM (PORCINE) 5000 UNITS/ML 1ML VIAL IV ONE (18:00)
[2023-09-19] MEDS ORDERED: HEPARIN 1,000 UNITS/ml 1ML VIAL XX ONE ×2 (18:45→20:30)
[2023-09-19] MEDS ORDERED: EPOETIN ALFA-EPBX 10,000 UNIT/1ML VIAL SC ONE (21:00)
[2023-09-19] MEDS: ATORVASTATIN 20 MG TAB PO SCH (22:44)
[2023-09-19] MEDS: ONDANSETRON HCL 4 MG/2 ML VIAL IV PRN (23:06)
[2023-09-20] VITALS (7 sets, daily range): BP systolic 101–192; BP diastolic 66–80; PULSE 59–67; RESP 16–18; TEMP 97.4–98; O2SAT 100
[2023-09-20] MEDS: FUROSEMIDE 40 MG/4 ML VIAL IV SCH (05:47)
[2023-09-20 07:51] LABS: Anion Gap 8 (5-15); Calcium 6.9 mg/dL (8.5-10.1); Carbon Dioxide 25 mmol/L (20-30); Chloride 107 mmol/L (98-107); Potassium 3.6 mmol/L (3.5-5.1); Sodium 140 mmol/L (136-145)
[2023-09-20 07:57] LABS: BUN/Creatinine Ratio 3.7 (10.0-20.0); Basophils # (auto) 0 10 ^3/uL (0-0.2); Basophils % (auto) 0.4 % (0.0-2.0); Blood Urea Nitrogen 22 mg/dL (9-23); Eosinophils # (auto) 0.3 10 ^3/uL (0-0.8); Glucose 70 mg/dL (74-106); Monocytes # (auto) 0.4 10 ^3/uL (0-1.3); White Blood Cell 4.8 10^3/uL (4.4-10.8)
[2023-09-20 07:59] LABS: Eosinophils % (auto) 6.3 % (0.0-7.0); Hematocrit 23.8 % (41.0-53.0); Hemoglobin 7.9 g/dL (13.5-17.5); Lymphocytes # (auto) 0.4 10 ^3/uL (0.4-5.4); Mean Corpuscular Hemoglobin 30.1 pg (28.0-32.0); Mean Corpuscular Hgb Conc. 33.4 g/dL (32.0-36.0); Mean Corpuscular Volume 90.3 fL (80.0-100.0); Monocytes % (auto) 8.8 % (0.0-12.0); Neutrophils # (auto) 3.6 10 ^3/uL (1.6-8.6); Neutrophils % (auto) 75.5 % (37.0-80.0); Red Blood Cells 2.64 10^6/uL (4.5-5.90); Red Cell Distribution Width 14.5 % (11.8-14.3)
[2023-09-20] MEDS: SEVELAMER 800 MG TAB PO SCH ×2 (08:30→17:32)
[2023-09-20 08:35] LABS: INR 4.86 (0.9-1.15); Partial Thromboplastin Time 108.5 SEC (24.5-34.5)
[2023-09-20] MEDS ORDERED: ARGATROBAN 250 MG in SODIUM CHL 0.9% 248.5 ML IV SCH ×4 (09:15)
[2023-09-20] MEDS: CARVEDILOL 3.125 MG TAB PO SCH ×2 (09:36→21:14)
[2023-09-20] MEDS: CALCIUM W/VIT D (600MG/400IU) TAB PO SCH (09:37)
[2023-09-20] MEDS: cefTRIAXone 1GM/50ML D5W 50 ML IV SCH (09:37)
[2023-09-20] MEDS: cloNIDine HCL 0.1 MG TAB PO SCH ×2 (09:37→21:15)
[2023-09-20] MEDS: FAMOTIDINE (10MG/ML) 2ML VL IV SCH (09:39)
[2023-09-20] MEDS: NIFEdipine ER 30 MG TAB PO SCH (09:40)
[2023-09-20 11:34] LABS: Basophils # (auto) 0 10 ^3/uL (0-0.2); Monocytes # (auto) 0.5 10 ^3/uL (0-1.3)
[2023-09-20 11:36] LABS: Basophils % (auto) 0.5 % (0.0-2.0); Eosinophils # (auto) 0.4 10 ^3/uL (0-0.8); Eosinophils % (auto) 5.6 % (0.0-7.0); Hematocrit 31.3 % (41.0-53.0); Hemoglobin 10.1 g/dL (13.5-17.5); Lymphocytes # (auto) 0.5 10 ^3/uL (0.4-5.4); Lymphocytes % (auto) 8.4 % (10.0-50.0); Mean Corpuscular Hemoglobin 29.8 pg (28.0-32.0); Mean Corpuscular Hgb Conc. 32.2 g/dL (32.0-36.0); Mean Corpuscular Volume 92.6 fL (80.0-100.0); Monocytes % (auto) 7.7 % (0.0-12.0); Neutrophils % (auto) 77.8 % (37.0-80.0); Nucleated Red Blood Cells % 0.3 %; Red Blood Cells 3.38 10^6/uL (4.5-5.90); Red Cell Distribution Width 15.2 % (11.8-14.3); White Blood Cell 6.4 10^3/uL (4.4-10.8)
[2023-09-20 12:28] LABS: INR 3.99 (0.9-1.15); Prothrombin Time 38.3 sec (9.3-11.8)
[2023-09-20 12:29] LABS: Partial Thromboplastin Time 89.4 SEC (24.5-34.5)
[2023-09-20 12:54] LABS: Platelet Estimate Decreased
[2023-09-20] MEDS: LOSARTAN POTASSIUM 50 MG TAB PO SCH (13:58)
[2023-09-20] MEDS: FUROSEMIDE 20 MG TAB PO SCH (13:59)
[2023-09-20] MEDS: ATORVASTATIN 20 MG TAB PO SCH (21:13)
[2023-09-21] VITALS (8 sets, daily range): BP systolic 122–160; BP diastolic 67–83; PULSE 61–74; RESP 16–18; TEMP 97.7–98.5; O2SAT 100
[2023-09-21 05:59] LABS: Basophils # (auto) 0 10 ^3/uL (0-0.2); Hemoglobin 7.8 g/dL (13.5-17.5); Lymphocytes # (auto) 0.7 10 ^3/uL (0.4-5.4); Monocytes # (auto) 0.5 10 ^3/uL (0-1.3)
[2023-09-21 06:02] LABS: Basophils % (auto) 0.5 % (0.0-2.0); Eosinophils # (auto) 0.9 10 ^3/uL (0-0.8); Eosinophils % (auto) 12.3 % (0.0-7.0); Hematocrit 23.3 % (41.0-53.0); Lymphocytes % (auto) 9.6 % (10.0-50.0); Mean Corpuscular Hemoglobin 29.7 pg (28.0-32.0); Mean Corpuscular Hgb Conc. 33.6 g/dL (32.0-36.0); Mean Corpuscular Volume 88.3 fL (80.0-100.0); Monocytes % (auto) 6.8 % (0.0-12.0); Neutrophils % (auto) 70.8 % (37.0-80.0); Red Blood Cells 2.63 10^6/uL (4.5-5.90); Red Cell Distribution Width 14.6 % (11.8-14.3)
[2023-09-21 06:09] LABS: Chloride 101 mmol/L (98-107); Sodium 137 mmol/L (136-145)
[2023-09-21 06:10] LABS: Anion Gap 6 (5-15); Carbon Dioxide 30 mmol/L (20-30)
[2023-09-21 06:11] LABS: Calcium 7.3 mg/dL (8.5-10.1)
[2023-09-21 06:13] LABS: INR 1.26 (0.9-1.15)
[2023-09-21 06:15] LABS: BUN/Creatinine Ratio 4.3 (10.0-20.0); Glucose 112 mg/dL (74-106)
[2023-09-21 06:22] LABS: Blood Urea Nitrogen 32 mg/dL (9-23)
[2023-09-21] MEDS ORDERED: [UNRECOGNIZED DRUG - OTHER] PO SCH (07:30)
[2023-09-21] MEDS ORDERED: SODIUM CHL 0.9% 1000 ML BAG XX ONE (07:45)
[2023-09-21] MEDS ORDERED: ARGATROBAN 250 MG in SODIUM CHL 0.9% 248.5 ML IV SCH (08:00)
[2023-09-21] MEDS: SEVELAMER 800 MG TAB PO SCH ×3 (08:04→19:04)
[2023-09-21] MEDS: FAMOTIDINE (10MG/ML) 2ML VL IV SCH (10:00)
[2023-09-21] MEDS: CALCIUM W/VIT D (600MG/400IU) TAB PO SCH (10:00)
[2023-09-21] MEDS: cloNIDine HCL 0.1 MG TAB PO SCH ×2 (10:00→22:21)
[2023-09-21] MEDS: NIFEdipine ER 30 MG TAB PO SCH (10:00)
[2023-09-21] MEDS: LOSARTAN POTASSIUM 50 MG TAB PO SCH (10:00)
[2023-09-21] MEDS: CARVEDILOL 3.125 MG TAB PO SCH ×2 (10:00→22:22)
[2023-09-21] MEDS: FUROSEMIDE 20 MG TAB PO SCH (10:00)
[2023-09-21 11:24] LABS: Basophils # (auto) 0 10 ^3/uL (0-0.2); Eosinophils # (auto) 0.6 10 ^3/uL (0-0.8); Hematocrit 23.7 % (41.0-53.0); Monocytes # (auto) 0.1 10 ^3/uL (0-1.3); Neutrophils # (auto) 3.6 10 ^3/uL (1.6-8.6); Red Cell Distribution Width 14.6 % (11.8-14.3); White Blood Cell 4.8 10^3/uL (4.4-10.8)
[2023-09-21 11:26] LABS: Basophils % (auto) 0.3 % (0.0-2.0); Eosinophils % (auto) 12.3 % (0.0-7.0); Lymphocytes # (auto) 0.4 10 ^3/uL (0.4-5.4); Lymphocytes % (auto) 9.4 % (10.0-50.0); Mean Corpuscular Hemoglobin 29.6 pg (28.0-32.0); Mean Corpuscular Hgb Conc. 33.8 g/dL (32.0-36.0); Mean Corpuscular Volume 87.6 fL (80.0-100.0); Monocytes % (auto) 2.5 % (0.0-12.0); Neutrophils % (auto) 75.5 % (37.0-80.0); Nucleated Red Blood Cells % 0.1 %
[2023-09-21 11:34] LABS: Chloride 104 mmol/L (98-107); Potassium 3.4 mmol/L (3.5-5.1); Sodium 140 mmol/L (136-145)
[2023-09-21 11:35] LABS: Anion Gap 4 (5-15); Calcium 7.4 mg/dL (8.5-10.1); Carbon Dioxide 32 mmol/L (20-30)
[2023-09-21 11:40] LABS: Blood Urea Nitrogen 15 mg/dL (9-23); Glucose 94 mg/dL (74-106)
[2023-09-21 11:41] LABS: BUN/Creatinine Ratio 4.3 (10.0-20.0)
[2023-09-21] MEDS ORDERED: APIX2.5T PO (13:11)
[2023-09-21 13:12] LABS: INR > 8.0 (0.9-1.15); Partial Thromboplastin Time 112.4 SEC (24.5-34.5)
[2023-09-21] MEDS ORDERED: APIXABAN 2.5 MG TAB PO ONE (13:15)
[2023-09-21 16:24] LABS: INR 4.41 (0.9-1.15); Partial Thromboplastin Time 92.2 SEC (24.5-34.5)
[2023-09-21] MEDS ORDERED: EPOETIN ALFA-EPBX 10,000 UNIT/1ML VIAL SC ONE (21:00)
[2023-09-21] MEDS ORDERED: APIXABAN 2.5 MG TAB PO SCH (22:00)
[2023-09-21] MEDS: ATORVASTATIN 20 MG TAB PO SCH (22:21)
[2023-09-22] VITALS (7 sets, daily range): BP systolic 102–150; BP diastolic 59–79; PULSE 61–80; RESP 14–20; TEMP 97.5–98.4; O2SAT 91–100
[2023-09-22 07:04] LABS: Red Cell Distribution Width 14.6 % (11.8-14.3); White Blood Cell 7.1 10^3/uL (4.4-10.8)
[2023-09-22 07:06] LABS: Hematocrit 21.6 % (41.0-53.0); Hemoglobin 7.3 g/dL (13.5-17.5); Mean Corpuscular Hemoglobin 30.2 pg (28.0-32.0); Mean Corpuscular Hgb Conc. 33.7 g/dL (32.0-36.0); Mean Corpuscular Volume 89.7 fL (80.0-100.0)
[2023-09-22 07:09] LABS: Chloride 104 mmol/L (98-107); Potassium 3.9 mmol/L (3.5-5.1); Sodium 138 mmol/L (136-145)
[2023-09-22 07:10] LABS: Anion Gap 2 (5-15); Calcium 7.3 mg/dL (8.5-10.1); Carbon Dioxide 32 mmol/L (20-30)
[2023-09-22 07:15] LABS: BUN/Creatinine Ratio 3.4 (10.0-20.0); Blood Urea Nitrogen 19 mg/dL (9-23); Glucose 92 mg/dL (74-106); INR 1.33 (0.9-1.15); Partial Thromboplastin Time 42.6 SEC (24.5-34.5); Prothrombin Time 13.7 sec (9.3-11.8)
[2023-09-22 07:44] LABS: Basophils % (manual) 0 (0.0-2.0); Blast Cells 0; Metamyelocytes % 0; Myelocytes % 0; Promyelocytes % 0; Reactive Lymphocytes 0
[2023-09-22] MEDS: CARVEDILOL 3.125 MG TAB PO SCH ×2 (09:36→22:08)
[2023-09-22] MEDS: cloNIDine HCL 0.1 MG TAB PO SCH ×2 (09:39→22:00)
[2023-09-22] MEDS: FUROSEMIDE 20 MG TAB PO SCH (09:39)
[2023-09-22] MEDS: SEVELAMER 800 MG TAB PO SCH ×3 (09:40→17:18)
[2023-09-22] MEDS: CALCIUM W/VIT D (600MG/400IU) TAB PO SCH (09:40)
[2023-09-22] MEDS: LOSARTAN POTASSIUM 50 MG TAB PO SCH (09:40)
[2023-09-22] MEDS: NIFEdipine ER 30 MG TAB PO SCH (09:41)
[2023-09-22] MEDS: FAMOTIDINE (10MG/ML) 2ML VL IV SCH (09:41)
[2023-09-22 13:51] LABS: Band Neutrophils % (manual) 2; Lymphocytes % (manual) 7 (10.0-50.0); Monocytes % (manual) 4 (0-12)
[2023-09-22 13:52] LABS: Eosinophils % (manual) 15 (0-7); Platelet Estimate Decreased
[2023-09-22] MEDS: ATORVASTATIN 20 MG TAB PO SCH (22:07)
[2023-09-22] MEDS: APIXABAN 2.5 MG TAB PO SCH (22:08)
[2023-09-23 05:00] VITALS: BP 133/69; PULSE 72; RESP 18; TEMP 98.5; O2SAT 92
[2023-09-23 07:27] LABS: Basophils # (auto) 0 10 ^3/uL (0-0.2); Eosinophils # (auto) 1.2 10 ^3/uL (0-0.8); Hemoglobin 7.5 g/dL (13.5-17.5); Nucleated Red Blood Cells % 0.1 %; Red Cell Distribution Width 14.4 % (11.8-14.3)
[2023-09-23 07:28] LABS: Basophils % (auto) 0.5 % (0.0-2.0); Eosinophils % (auto) 14.7 % (0.0-7.0); Hematocrit 22.3 % (41.0-53.0); Lymphocytes # (auto) 0.7 10 ^3/uL (0.4-5.4); Lymphocytes % (auto) 8.8 % (10.0-50.0); Mean Corpuscular Hgb Conc. 33.5 g/dL (32.0-36.0); Mean Corpuscular Volume 89.5 fL (80.0-100.0); Monocytes # (auto) 0.4 10 ^3/uL (0-1.3); Monocytes % (auto) 5.4 % (0.0-12.0); Neutrophils # (auto) 5.5 10 ^3/uL (1.6-8.6); Neutrophils % (auto) 70.6 % (37.0-80.0); Red Blood Cells 2.49 10^6/uL (4.5-5.90); White Blood Cell 7.9 10^3/uL (4.4-10.8)
[2023-09-23 07:38] LABS: INR 1.17 (0.9-1.15); Prothrombin Time 12.2 sec (9.3-11.8)
[2023-09-23 08:00] VITALS: BP 139/75; PULSE 70; PULSE 74; PULSE 77; RESP 16; RESP 19; TEMP 98.2; O2SAT 98
[2023-09-23] MEDS: SEVELAMER 800 MG TAB PO SCH ×4 (08:00→18:00)
[2023-09-23 08:27] LABS: Albumin 2.2 g/dL (3.2-4.8); Alkaline Phosphatase 79 U/L (46-116); Anion Gap 4 (5-15); Aspartate Aminotransferase 20 U/L (13-40); BUN/Creatinine Ratio 3.5 (10.0-20.0); Bilirubin, Total 0.3 mg/dL (0.2-1.0); Blood Urea Nitrogen 23 mg/dL (9-23); Calcium 7.3 mg/dL (8.5-10.1); Carbon Dioxide 31 mmol/L (20-30); Chloride 103 mmol/L (98-107); Glucose 95 mg/dL (74-106); Potassium 4.1 mmol/L (3.5-5.1); Sodium 138 mmol/L (136-145); Total Protein 4.5 g/dL (5.7-8.2)
[2023-09-23 08:31] LABS: Alanine Aminotransferase < 9 U/L (7-40)
[2023-09-23 09:00] VITALS: BP 139/75; PULSE 77; RESP 19; TEMP 98.2; O2SAT 91
[2023-09-23] MEDS: FAMOTIDINE (10MG/ML) 2ML VL IV SCH (10:00)
[2023-09-23] MEDS: APIXABAN 2.5 MG TAB PO SCH (10:00)
[2023-09-23] MEDS: CALCIUM W/VIT D (600MG/400IU) TAB PO SCH (10:00)
[2023-09-23] MEDS: NIFEdipine ER 30 MG TAB PO SCH (10:00)
[2023-09-23] MEDS: CARVEDILOL 3.125 MG TAB PO SCH (10:00)
[2023-09-23] MEDS: LOSARTAN POTASSIUM 50 MG TAB PO SCH (10:00)
[2023-09-23] MEDS: cloNIDine HCL 0.1 MG TAB PO SCH (10:00)
[2023-09-23] MEDS ORDERED: FUROSEMIDE 40 MG TAB PO SCH (10:00)
[2023-09-23 13:00] VITALS: BP 141/72; PULSE 70; RESP 16; TEMP 98.3; O2SAT 93
[2023-09-23 15:50] VITALS: BP 141/72; PULSE 70; RESP 16; TEMP 98.3; O2SAT 93
[2023-09-23 17:00] VITALS: BP 140/75; PULSE 69; RESP 15; TEMP 97.9; O2SAT 97
[2023-09-23] MEDS ORDERED: EPOETIN ALFA-EPBX 10,000 UNIT/1ML VIAL SC ONE (21:00)
[2023-09-25 18:49] LABS: Complement C3 66 mg/dL (82-167)
== END 2023-09-23 19:00 | disposition home health service (06) | DRG 194 ==
LOC: ER 08:44 → TELE 15:23 → TELE-WESTW 15:23
PROVIDERS: ADMIT Internal Medicine Geriatric Medicine; ATTEND Internal Medicine Geriatric Medicine
PROC: 5A1D70Z Performance of Urinary Filtration, Intermittent, Less than 6 Hours Per Day (ICD-10-PCS; 2023-09-17)
PROC: 5A1D70Z Performance of Urinary Filtration, Intermittent, Less than 6 Hours Per Day (ICD-10-PCS; 2023-09-18)
PROC: 0JH63XZ Insertion of Tunneled Vascular Access Device into Chest Subcutaneous Tissue and Fascia, Percutaneous Approach (ICD-10-PCS; principal; 2023-09-19)
PROC: 02H633Z Insertion of Infusion Device into Right Atrium, Percutaneous Approach (ICD-10-PCS; 2023-09-19)
PROC: B5181ZA Fluoroscopy of Superior Vena Cava using Low Osmolar Contrast, Guidance (ICD-10-PCS; 2023-09-19)
PROC: B548ZZA Ultrasonography of Superior Vena Cava, Guidance (ICD-10-PCS; 2023-09-19)
PROC: 5A1D70Z Performance of Urinary Filtration, Intermittent, Less than 6 Hours Per Day (ICD-10-PCS; 2023-09-19)
PROC: 5A1D70Z Performance of Urinary Filtration, Intermittent, Less than 6 Hours Per Day (ICD-10-PCS; 2023-09-21)
PROC: 5A1D70Z Performance of Urinary Filtration, Intermittent, Less than 6 Hours Per Day (ICD-10-PCS; 2023-09-23)
DX: I13.2 Hypertensive heart and chronic kidney disease with heart failure and with stage 5 chronic kidney disease, or end stage renal disease (principal); J15.69 Pneumonia due to other Gram-negative bacteria; I21.A1 Myocardial infarction type 2; E87.20 Acidosis, unspecified; E44.0 Moderate protein-calorie malnutrition; N17.9 Acute kidney failure, unspecified; D75.829 Heparin-induced thrombocytopenia, unspecified; D63.1 Anemia in chronic kidney disease; E83.39 Other disorders of phosphorus metabolism; N18.6 End stage renal disease; J15.9 Unspecified bacterial pneumonia; E87.5 Hyperkalemia; I50.84 End stage heart failure; E88.09 Other disorders of plasma-protein metabolism, not elsewhere classified; Z20.822 Contact with and (suspected) exposure to COVID-19; E11.22 Type 2 diabetes mellitus with diabetic chronic kidney disease; T45.515A Adverse effect of anticoagulants, initial encounter; I50.22 Chronic systolic (congestive) heart failure; E78.5 Hyperlipidemia, unspecified; E79.0 Hyperuricemia without signs of inflammatory arthritis and tophaceous disease; E87.6 Hypokalemia; Z80.51 Family history of malignant neoplasm of kidney; Z82.49 Family history of ischemic heart disease and other diseases of the circulatory system; Z83.3 Family history of diabetes mellitus; Z99.2 Dependence on renal dialysis; Z68.24 Body mass index [BMI] 24.0-24.9, adult; Y92.89 Other specified places as the place of occurrence of the external cause
CPT/HCPCS: 36415; 36558; 71045; 71250; 74176; 76000; 76775; 76937; 77001; 80048; 80053; 80061; 80076; 80307; 80320; 81001; 82306; 82550; 82728; 82784; 82962; 83036; 83540; 83550; 83605; 83735; 83880; 83970; 84100; 84443; 84484; 85007; 85025; 85027; 85379; 85610; 85730; 86160; 86334; 86704; 86706; 86708; 86803; 87040; 87081; 87340; 87426; 87804; 90935; 93005; 93306; 93970; 94640; 96365; 96367; 96368; 96375; 97110; 97116; 97163; 97530; 99152; 99291; G0378; J1642; J1815; J1956; J2250; J2405; J3490; P9047

== ENCOUNTER 2023-10-11 21:51 | Emergency (ER) | payer MEDICAID ==
[~2023-10-11] VITALS: Ht 165.1 cm; Wt 71.8 kg
[~2023-10-11 21:51] MED LIST changes: +APIX2.5T PO; -CIP03OS EACHEYE
[2023-10-11 23:08] LABS: Basophils # (auto) 0 10 ^3/uL (0-0.2); Eosinophils # (auto) 0.5 10 ^3/uL (0-0.8); Lymphocytes # (auto) 0.5 10 ^3/uL (0.4-5.4); Monocytes # (auto) 0.3 10 ^3/uL (0-1.3)
[2023-10-11 23:10] LABS: Eosinophils % (auto) 11.7 % (0.0-7.0); Hematocrit 20.5 % (41.0-53.0); Hemoglobin 7.2 g/dL (13.5-17.5); Lymphocytes % (auto) 10.7 % (10.0-50.0); Mean Corpuscular Hgb Conc. 35.2 g/dL (32.0-36.0); Mean Corpuscular Volume 93.7 fL (80.0-100.0); Monocytes % (auto) 7.4 % (0.0-12.0); Neutrophils # (auto) 3.2 10 ^3/uL (1.6-8.6); Neutrophils % (auto) 69.2 % (37.0-80.0); Red Blood Cells 2.19 10^6/uL (4.5-5.90); Red Cell Distribution Width 18.8 % (11.8-14.3); White Blood Cell 4.7 10^3/uL (4.4-10.8)
[2023-10-11 23:13] LABS: Chloride 103 mmol/L (98-107); Potassium 3.1 mmol/L (3.5-5.1); Sodium 136 mmol/L (136-145)
[2023-10-11 23:14] LABS: Anion Gap 4 (5-15); Calcium 7.3 mg/dL (8.7-10.4); Carbon Dioxide 29 mmol/L (20-30)
[2023-10-11 23:19] LABS: BUN/Creatinine Ratio 5.5 (10.0-20.0); Blood Urea Nitrogen 15 mg/dL (9-23); Glucose 168 mg/dL (74-106)
[2023-10-12 00:40] VITALS: BP 178/94; PULSE 72; RESP 20; O2SAT 100
== END 2023-10-12 00:45 | disposition home or self-care (01) ==
LOC: ER 21:51
DX: D64.9 Anemia, unspecified (principal); I12.0 Hypertensive chronic kidney disease with stage 5 chronic kidney disease or end stage renal disease; E11.22 Type 2 diabetes mellitus with diabetic chronic kidney disease; N18.6 End stage renal disease; E78.5 Hyperlipidemia, unspecified; Z99.2 Dependence on renal dialysis; Z79.899 Other long term (current) drug therapy
CPT/HCPCS: 36415; 80048; 84484; 85025; 86850; 86900; 86901; 93005

== ENCOUNTER 2023-10-19 17:49 | Inpatient (IN) | payer MEDICAID ==
[~2023-10-19] VITALS: Ht 165.1 cm; Wt 70.8 kg
[2023-10-19 20:07] LABS: Basophils # (auto) 0.1 10 ^3/uL (0-0.2); Hematocrit 24.3 % (41.0-53.0); Hemoglobin 7.9 g/dL (13.5-17.5); Monocytes # (auto) 0.5 10 ^3/uL (0-1.3); Monocytes % (auto) 6.8 % (0.0-12.0); Neutrophils # (auto) 4.8 10 ^3/uL (1.6-8.6); Nucleated Red Blood Cells % 0.1 %
[2023-10-19 20:10] LABS: Basophils % (auto) 0.9 % (0.0-2.0); Eosinophils % (auto) 13.4 % (0.0-7.0); Lymphocytes # (auto) 0.9 10 ^3/uL (0.4-5.4); Lymphocytes % (auto) 12.2 % (10.0-50.0); Mean Corpuscular Hemoglobin 31.1 pg (28.0-32.0); Mean Corpuscular Hgb Conc. 32.6 g/dL (32.0-36.0); Mean Corpuscular Volume 95.5 fL (80.0-100.0); Neutrophils % (auto) 66.7 % (37.0-80.0); Red Blood Cells 2.54 10^6/uL (4.5-5.90); White Blood Cell 7.2 10^3/uL (4.4-10.8)
[2023-10-19 20:27] LABS: Alanine Aminotransferase 19 U/L (7-40); Albumin 3.1 g/dL (3.2-4.8); Alkaline Phosphatase 139 U/L (46-116); Anion Gap 5 (5-15); Aspartate Aminotransferase 19 U/L (13-40); BUN/Creatinine Ratio 5.9 (10.0-20.0); Bilirubin, Total 0.3 mg/dL (0.2-1.0); Blood Urea Nitrogen 24 mg/dL (9-23); Calcium 8.2 mg/dL (8.7-10.4); Carbon Dioxide 31 mmol/L (20-30); Chloride 105 mmol/L (98-107); Glucose 117 mg/dL (74-106); Lipase 93 U/L (12-53); Potassium 3.7 mmol/L (3.5-5.1); Sodium 141 mmol/L (136-145)
[2023-10-20] MEDS ORDERED: HYDROcodone-ACET 5/325MG TAB PO PRN (00:30)
[2023-10-20] MEDS ORDERED: DEXTROSE (50%) 50ML SYRG IV PRN (00:30)
[2023-10-20] MEDS ORDERED: ACETAMINOPHEN 325 MG TAB PO PRN (00:30)
[2023-10-20] MEDS ORDERED: ONDANSETRON HCL 4 MG/2 ML VIAL IV PRN (00:30)
[2023-10-20] MEDS ORDERED: DOCUSATE SOD 100 MG CAP PO PRN (00:30)
[2023-10-20] MEDS ORDERED: NITROGLYCERIN 0.4 MG SL TAB SL PRN (00:45)
[2023-10-20] MEDS ORDERED: MORPHINE SULFATE INJ 2 MG/ml SYRG IV PRN (00:45)
[2023-10-20] MEDS: FUROSEMIDE 40 MG/4 ML VIAL IV ONE (05:06)
[2023-10-20] MEDS: SODIUM CHLOR 0.9% PF (SALINE LOCK) 10ML VIAL/SYR IV SCH (06:12)
[2023-10-20] MEDS: InsuLIN REG 1unit/0.01ml Soln (100units/ml) SC SCH (07:52)
[2023-10-20] MEDS: ACCU-CHEK COMFORT CURVE STRIP VI SCH (07:52)
[2023-10-20] MEDS: SEVELAMER 800 MG TAB PO SCH (07:58)
[2023-10-20 08:06] LABS: Hemoglobin 7.9 g/dL (13.5-17.5)
[2023-10-20 08:09] LABS: Hematocrit 23.8 % (41.0-53.0); Mean Corpuscular Hemoglobin 31.7 pg (28.0-32.0); Mean Corpuscular Hgb Conc. 33.1 g/dL (32.0-36.0); Mean Corpuscular Volume 95.9 fL (80.0-100.0); Red Blood Cells 2.48 10^6/uL (4.5-5.90); Red Cell Distribution Width 19.8 % (11.8-14.3); White Blood Cell 6.7 10^3/uL (4.4-10.8)
[2023-10-20 08:12] LABS: Basophils % (manual) 0 (0.0-2.0); Blast Cells 0; Promyelocytes % 0; Reactive Lymphocytes 0
[2023-10-20 08:22] LABS: Alanine Aminotransferase 17 U/L (7-40); Albumin 3.1 g/dL (3.2-4.8); Alkaline Phosphatase 123 U/L (46-116); Anion Gap 7 (5-15); Aspartate Aminotransferase 19 U/L (13-40); BUN/Creatinine Ratio 5.8 (10.0-20.0); Blood Urea Nitrogen 27 mg/dL (9-23); Calcium 8.5 mg/dL (8.5-10.1); Carbon Dioxide 31 mmol/L (20-30); Chloride 104 mmol/L (98-107); Glucose 104 mg/dL (74-106); Potassium 3.6 mmol/L (3.5-5.1); Sodium 142 mmol/L (136-145)
[2023-10-20 08:23] LABS: Bilirubin, Total 0.3 mg/dL (0.2-1.0); Total Protein 5.8 g/dL (5.7-8.2)
[2023-10-20 08:40] LABS: Band Neutrophils % (manual) 4; Lymphocytes % (manual) 7 (10.0-50.0); Monocytes % (manual) 3 (0-12)
[2023-10-20 08:41] LABS: Eosinophils % (manual) 11 (0-7); Metamyelocytes % 6; Myelocytes % 2; Platelet Estimate Adequate
[2023-10-20] MEDS ORDERED: FUROSEMIDE 40 MG/4 ML VIAL IV SCH (10:00)
[2023-10-20] MEDS: APIXABAN 2.5 MG TAB PO SCH (10:00)
[2023-10-20] MEDS ORDERED: CARVEDILOL 12.5 MG TAB PO SCH (10:00)
[2023-10-20] MEDS: SODIUM CHL 0.9% 1000 ML BAG XX ONE (12:00)
[2023-10-20 12:35] LABS: Folate (Folic Acid) 4.14 ng/mL (>5.38)
[2023-10-20 12:40] LABS: INR 1.15 (0.9-1.15); Partial Thromboplastin Time 34.6 SEC (24.5-34.5)
[2023-10-20 13:09] LABS: % Iron Saturation 22.9 % (20-55)
[2023-10-20 13:55] LABS: Thyroid Stimulating Hormone 2.56 uIU/mL (0.55-4.78)
[2023-10-20] MEDS: FUROSEMIDE 40 MG/4 ML VIAL IV SCH (14:00)
[2023-10-20] MEDS: B-COMPLEX W/ C & FOLIC ACID(NEPHROVITE TAB) PO SCH (14:25)
[2023-10-20 14:54] LABS: Base Excess 7.7 mmol/L (-2.0-2.0)
[2023-10-20 17:00] VITALS: RESP 20; O2SAT 97
[2023-10-20 21:00] VITALS: PULSE 90; O2SAT 98
[2023-10-20] MEDS ORDERED: EPOETIN ALFA-EPBX 10,000 UNIT/1ML VIAL SC ONE (21:00)
[2023-10-20] MEDS: hydrALAZINE HCL 20 MG/ML VL IV PRN (21:07)
[2023-10-20 21:15] VITALS: BP 187/81; PULSE 78; RESP 16; TEMP 97.9; O2SAT 100
[2023-10-20 22:00] VITALS: BP 187/81; PULSE 78; RESP 16; TEMP 97.9; O2SAT 99
[2023-10-20] MEDS ORDERED: ATORVASTATIN 20 MG TAB PO SCH (22:00)
[2023-10-20] MEDS: ATORVASTATIN 20 MG TAB PO SCH (22:48)
[2023-10-20] MEDS: CARVEDILOL 3.125 MG TAB PO SCH (22:49)
[2023-10-20] MEDS: HEPARIN SODIUM (PORCINE) 5000 UNITS/ML 1ML VIAL SC SCH (23:05)
[2023-10-21] VITALS (9 sets, daily range): BP systolic 129–171; BP diastolic 74–102; PULSE 75–83; RESP 16–18; TEMP 97.5–98.4; O2SAT 98–100
[2023-10-21] MEDS: NIFEdipine ER 30 MG TAB PO ONE (00:38)
[2023-10-21 06:02] LABS: Basophils # (auto) 0.1 10 ^3/uL (0-0.2); Hematocrit 22.9 % (41.0-53.0); Hemoglobin 7.5 g/dL (13.5-17.5); Lymphocytes # (auto) 0.7 10 ^3/uL (0.4-5.4); Monocytes # (auto) 0.5 10 ^3/uL (0-1.3); Neutrophils # (auto) 3.9 10 ^3/uL (1.6-8.6)
[2023-10-21 06:05] LABS: Basophils % (auto) 1.1 % (0.0-2.0); Eosinophils # (auto) 0.8 10 ^3/uL (0-0.8); Lymphocytes % (auto) 11.6 % (10.0-50.0); Mean Corpuscular Hemoglobin 31.3 pg (28.0-32.0); Mean Corpuscular Hgb Conc. 32.6 g/dL (32.0-36.0); Mean Corpuscular Volume 95.9 fL (80.0-100.0); Monocytes % (auto) 8.1 % (0.0-12.0); Neutrophils % (auto) 65.2 % (37.0-80.0); Red Blood Cells 2.39 10^6/uL (4.5-5.90); Red Cell Distribution Width 20.3 % (11.8-14.3)
[2023-10-21 06:15] LABS: Alanine Aminotransferase 12 U/L (7-40); Albumin 2.8 g/dL (3.2-4.8); Alkaline Phosphatase 114 U/L (46-116); Anion Gap 5 (5-15); Aspartate Aminotransferase 13 U/L (13-40); BUN/Creatinine Ratio 5.9 (10.0-20.0); Blood Urea Nitrogen 26 mg/dL (9-23); Calcium 8.1 mg/dL (8.7-10.4); Carbon Dioxide 31 mmol/L (20-30); Chloride 105 mmol/L (98-107); Glucose 90 mg/dL (74-106); Potassium 3.8 mmol/L (3.5-5.1); Sodium 141 mmol/L (136-145)
[2023-10-21 06:16] LABS: Total Protein 5.4 g/dL (5.7-8.2)
[2023-10-21 06:20] LABS: Bilirubin, Total 0.3 mg/dL (0.2-1.0)
[2023-10-21] MEDS: NIFEdipine ER 30 MG TAB PO SCH (09:44)
[2023-10-21] MEDS: ASPirin 81 mg TAB PO SCH (09:44)
[2023-10-21] MEDS: cefTRIAXone 1GM/50ML D5W 50 ML IV ONE (11:06)
[2023-10-21] MEDS: IRON SUCROSE COMPLEX 100 ML IV SCH (11:49)
[2023-10-21] MEDS: AZITHROMYCIN 500MG/ 250ML 250 ML IV ONE (13:21)
[2023-10-21 17:04] LABS: Urine Bacteria NONE SEEN /hpf (None Seen); Urine Blood Negative /uL (Negative); Urine Clarity Clear (Clear); Urine Color Yellow (Yellow); Urine Protein, UAD 4+ (Negative); Urine Specific Gravity 1.019 (1.001-1.035); Urine Urobilinogen Normal (Negative); Urine WBC 2 /hpf (0 - 3)
[2023-10-21 17:16] LABS: Amphetamine Screen, Urine Neg (NEGATIVE); Barbiturate Scree,Urine Neg (NEGATIVE); Benzodiazephine Screen, Urine Neg (NEGATIVE); Cannabinoid Screen, Urine Neg (NEGATIVE); Cocaine Screen, Urine Neg (NEGATIVE); Opiate Scree,Urine Neg (NEGATIVE); Phencyclidine Screen, Urine Neg (NEGATIVE)
[2023-10-21 19:18] LABS: Body Fluid Polymorphonuclear 30 % (0-25); Body Fluid Red Blood Cells 300 CUMM (0-2000); Body Fluid White Blood Cells 103 CUMM (0-200)
[2023-10-22 05:00] VITALS: BP 145/88; PULSE 77; RESP 18; TEMP 97.7; O2SAT 100
[2023-10-22 06:13] LABS: Chloride 105 mmol/L (98-107); Potassium 4.2 mmol/L (3.5-5.1); Sodium 140 mmol/L (136-145)
[2023-10-22 06:14] LABS: Anion Gap 4 (5-15); Calcium 7.7 mg/dL (8.7-10.4); Carbon Dioxide 31 mmol/L (20-30)
[2023-10-22 06:19] LABS: Glucose 94 mg/dL (74-106)
[2023-10-22 06:20] LABS: BUN/Creatinine Ratio 7.1 (10.0-20.0)
[2023-10-22 06:31] LABS: Blood Urea Nitrogen 39 mg/dL (9-23)
[2023-10-22 08:00] VITALS: PULSE 83; PULSE 84; RESP 20; O2SAT 100
[2023-10-22] MEDS: cefTRIAXone 1GM/50ML D5W 50 ML IV SCH (08:35)
[2023-10-22 09:00] VITALS: BP 150/80; PULSE 83; RESP 20; TEMP 97.8; O2SAT 100
[2023-10-22] MEDS ORDERED: PIPERACILLIN-TAZOB 2.25GM 0.75 GM in D5W 5% 50 ML IV SCH (09:30)
[2023-10-22] MEDS: PIPERACILLIN-TAZOB 2.25GM 50 ML IV SCH (09:48)
[2023-10-22] MEDS ORDERED: AZITHROMYCIN 500MG/ 250ML 250 ML IV SCH (10:00)
[2023-10-22 13:00] VITALS: BP 143/88; PULSE 77; RESP 20; TEMP 97.7; O2SAT 95
[2023-10-22 20:00] VITALS: BP 143/83; PULSE 79; PULSE 80; RESP 16; TEMP 97.8; O2SAT 98
[2023-10-22 22:00] VITALS: BP 168/88; PULSE 80; RESP 16; TEMP 97.8; O2SAT 98
[2023-10-23] VITALS (7 sets, daily range): BP systolic 135–158; BP diastolic 72–86; PULSE 76–85; RESP 16–18; TEMP 97.3–98.3; O2SAT 95–98
[2023-10-23 07:07] LABS: Hematocrit 21.3 % (41.0-53.0); Mean Corpuscular Hemoglobin 31.7 pg (28.0-32.0); Mean Corpuscular Hgb Conc. 32.8 g/dL (32.0-36.0); Mean Corpuscular Volume 96.8 fL (80.0-100.0); Red Cell Distribution Width 19.7 % (11.8-14.3); White Blood Cell 8.6 10^3/uL (4.4-10.8)
[2023-10-23 07:20] LABS: Anion Gap 8 (5-15); Carbon Dioxide 28 mmol/L (20-30); Chloride 104 mmol/L (98-107); Potassium 4.7 mmol/L (3.5-5.1); Sodium 140 mmol/L (136-145)
[2023-10-23 07:21] LABS: Calcium 8.2 mg/dL (8.5-10.1)
[2023-10-23 07:26] LABS: BUN/Creatinine Ratio 6.8 (10.0-20.0); Blood Urea Nitrogen 46 mg/dL (9-23); Glucose 85 mg/dL (74-106)
[2023-10-23 07:38] LABS: Band Neutrophils % (manual) 0; Basophils % (manual) 0 (0.0-2.0); Blast Cells 0; Metamyelocytes % 0; Myelocytes % 0; Promyelocytes % 0; Reactive Lymphocytes 0
[2023-10-23] MEDS: hydrALAZINE HCL 25 MG TAB PO ONE (09:44)
[2023-10-23] MEDS: hydrALAZINE HCL 25 MG TAB PO SCH (14:04)
[2023-10-23 14:37] LABS: Eosinophils % (manual) 12 (0-7); Lymphocytes % (manual) 10 (10.0-50.0); Monocytes % (manual) 8 (0-12)
[2023-10-23 14:38] LABS: Platelet Estimate Adequate
[2023-10-23] MEDS: FUROSEMIDE 40 MG/4 ML VIAL IV SCH (17:53)
[2023-10-24] VITALS (11 sets, daily range): BP systolic 121–153; BP diastolic 68–87; PULSE 69–82; RESP 11–18; TEMP 97.8–99.1; O2SAT 86–100
[2023-10-24] MEDS: FUROSEMIDE 40 MG TAB PO SCH (06:00)
[2023-10-24 06:55] LABS: Alkaline Phosphatase 97 U/L (46-116); Anion Gap 9 (5-15); Aspartate Aminotransferase 11 U/L (13-40); BUN/Creatinine Ratio 7.5 (10.0-20.0); Carbon Dioxide 27 mmol/L (20-30); Chloride 104 mmol/L (98-107); Glucose 81 mg/dL (74-106); Magnesium 2.2 mg/dL (1.6-2.6); Potassium 4.8 mmol/L (3.5-5.1); Sodium 140 mmol/L (136-145)
[2023-10-24 06:56] LABS: Albumin 2.9 g/dL (3.2-4.8); Hematocrit 21.9 % (41.0-53.0); Hemoglobin 7.3 g/dL (13.5-17.5); Mean Corpuscular Hgb Conc. 33.2 g/dL (32.0-36.0)
[2023-10-24 06:57] LABS: Bilirubin, Total 0.2 mg/dL (0.2-1.0); Phosphorus 3.9 mg/dL (2.4-5.1); Total Protein 5.6 g/dL (5.7-8.2)
[2023-10-24 07:00] LABS: Mean Corpuscular Hemoglobin 32.2 pg (28.0-32.0); Mean Corpuscular Volume 97.1 fL (80.0-100.0); Red Blood Cells 2.26 10^6/uL (4.5-5.90); Red Cell Distribution Width 19.4 % (11.8-14.3); White Blood Cell 8.6 10^3/uL (4.4-10.8)
[2023-10-24] MEDS ORDERED: SODIUM CHL 0.9% 1000 ML BAG XX ONE (07:00)
[2023-10-24 07:01] LABS: Alanine Aminotransferase < 9 U/L (7-40); Blood Urea Nitrogen 57 mg/dL (9-23)
[2023-10-24 07:21] LABS: Band Neutrophils % (manual) 0; Basophils % (manual) 0 (0.0-2.0); Blast Cells 0; Metamyelocytes % 0; Myelocytes % 0; Promyelocytes % 0; Reactive Lymphocytes 0
[2023-10-24 10:38] LABS: Albumin, Body Fluid 0.7 g/dL (Not Estab.); Protein, Body Fluid 1.3 g/dL (.)
[2023-10-24 11:22] LABS: Eosinophils % (manual) 15 (0-7); Lymphocytes % (manual) 11 (10.0-50.0); Monocytes % (manual) 7 (0-12); Platelet Estimate Adequate
[2023-10-24] MEDS: ANGIOMAX 250 MG VIAL IV ONE (11:38)
[2023-10-24] MEDS: SODIUM CHL 0.9% 50 ML ONE (11:39)
[2023-10-24] MEDS: MIDAZOLAM HCL 2MG/2ML 2ml VIAL (1mg/ml) ONE (11:50)
[2023-10-24] MEDS: VERAPAMIL 2.5MG/ML INJ 2ML VIAL IV ONE (11:50)
[2023-10-24] MEDS: LIDOCAINE 2%HCL (LOCAL ANESTH.) INJ 20ML MDV ONE (11:51)
[2023-10-24] MEDS: fentaNYL CITRATE 100 MCG/2 ML VL ONE (11:51)
[2023-10-24] MEDS: HEPARIN SODIUM (PORCINE) 5000 UNITS/ML 1ML VIAL ONE (11:51)
[2023-10-24] MEDS: IODIXANOL 320MG/ML 100ML BTL IV ONE (12:25)
[2023-10-24] MEDS: CLOPIDOGREL 300 MG TAB ONE (12:41)
[2023-10-24] MEDS: ASPirin 81 mg TAB ONE (12:41)
[2023-10-24] MEDS ORDERED: EPOETIN ALFA-EPBX 10,000 UNIT/1ML VIAL SC ONE (21:00)
[2023-10-25 05:00] VITALS: BP 142/81; PULSE 76; RESP 17; TEMP 98.5; O2SAT 98
[2023-10-25 06:17] LABS: Basophils # (auto) 0.1 10 ^3/uL (0-0.2); Eosinophils # (auto) 1.2 10 ^3/uL (0-0.8); Hemoglobin 7.3 g/dL (13.5-17.5); Lymphocytes # (auto) 0.6 10 ^3/uL (0.4-5.4); Mean Corpuscular Hemoglobin 31.6 pg (28.0-32.0); Mean Corpuscular Hgb Conc. 32.6 g/dL (32.0-36.0); Monocytes # (auto) 0.5 10 ^3/uL (0-1.3)
[2023-10-25 06:19] LABS: Eosinophils % (auto) 14.5 % (0.0-7.0); Hematocrit 22.4 % (41.0-53.0); Lymphocytes % (auto) 7.1 % (10.0-50.0); Mean Corpuscular Volume 96.9 fL (80.0-100.0); Monocytes % (auto) 6.2 % (0.0-12.0); Neutrophils # (auto) 5.8 10 ^3/uL (1.6-8.6); Neutrophils % (auto) 71.2 % (37.0-80.0); Red Blood Cells 2.31 10^6/uL (4.5-5.90); Red Cell Distribution Width 19.5 % (11.8-14.3); White Blood Cell 8.2 10^3/uL (4.4-10.8)
[2023-10-25 06:20] LABS: Chloride 103 mmol/L (98-107); Potassium 5.2 mmol/L (3.5-5.1); Sodium 138 mmol/L (136-145)
[2023-10-25 06:21] LABS: Anion Gap 8 (5-15); Carbon Dioxide 27 mmol/L (20-30)
[2023-10-25 06:22] LABS: Calcium 8.1 mg/dL (8.5-10.1)
[2023-10-25 06:26] LABS: BUN/Creatinine Ratio 7.6 (10.0-20.0); Blood Urea Nitrogen 64 mg/dL (9-23); Glucose 74 mg/dL (74-106)
[2023-10-25 08:00] VITALS: PULSE 75
[2023-10-25] MEDS: CLOPIDOGREL BISULFATE 75 MG TAB PO SCH (08:49)
[2023-10-25 09:17] VITALS: BP 144/75; PULSE 75; RESP 18; TEMP 97.4; O2SAT 97
[2023-10-25] MEDS ORDERED: CLOP75TA70 PO (10:12)
[2023-10-25] MEDS ORDERED: ASPI1TAB20 PO (10:14)
[2023-10-25 12:40] VITALS: BP 132/77; PULSE 75; RESP 18; TEMP 98.1; O2SAT 98
[2023-10-25 17:08] VITALS: BP 136/68; PULSE 68; RESP 16; TEMP 97.2; O2SAT 98
[2023-10-26 08:29] LABS: Hepatitis B Surface Antibody Negative (Negative)
[2023-10-26 08:48] LABS: Hepatitis B Surface Antigen Negative (Negative)
== END 2023-10-25 19:09 | disposition home or self-care (01) | DRG 174 ==
LOC: ER 17:49 → TELE 10-20 00:48 → TELE-WESTW 10-20 20:45
PROVIDERS: ADMIT Nurse Practitioner Family; ATTEND Internal Medicine Geriatric Medicine
PROC: 5A1D70Z Performance of Urinary Filtration, Intermittent, Less than 6 Hours Per Day (ICD-10-PCS; 2023-10-20)
PROC: 0W9B3ZZ Drainage of Left Pleural Cavity, Percutaneous Approach (ICD-10-PCS; principal; 2023-10-21)
PROC: 5A1D70Z Performance of Urinary Filtration, Intermittent, Less than 6 Hours Per Day (ICD-10-PCS; 2023-10-23)
PROC: 027135Z Dilation of Coronary Artery, Two Arteries with Two Drug-eluting Intraluminal Devices, Percutaneous Approach (ICD-10-PCS; 2023-10-24)
PROC: 4A023N7 Measurement of Cardiac Sampling and Pressure, Left Heart, Percutaneous Approach (ICD-10-PCS; 2023-10-24)
PROC: B211YZZ Fluoroscopy of Multiple Coronary Arteries using Other Contrast (ICD-10-PCS; 2023-10-24)
PROC: 027135Z Dilation of Coronary Artery, Two Arteries with Two Drug-eluting Intraluminal Devices, Percutaneous Approach (ICD-10-PCS; 2023-10-24)
DX: I21.4 Non-ST elevation (NSTEMI) myocardial infarction (principal); J96.21 Acute and chronic respiratory failure with hypoxia; I50.21 Acute systolic (congestive) heart failure; E44.0 Moderate protein-calorie malnutrition; J90 Pleural effusion, not elsewhere classified; N18.6 End stage renal disease; D63.1 Anemia in chronic kidney disease; I13.2 Hypertensive heart and chronic kidney disease with heart failure and with stage 5 chronic kidney disease, or end stage renal disease; Z68.26 Body mass index [BMI] 26.0-26.9, adult; J98.11 Atelectasis; Z99.2 Dependence on renal dialysis; E78.5 Hyperlipidemia, unspecified; E11.22 Type 2 diabetes mellitus with diabetic chronic kidney disease; D50.9 Iron deficiency anemia, unspecified; I25.10 Atherosclerotic heart disease of native coronary artery without angina pectoris; Z74.01 Bed confinement status; Z79.899 Other long term (current) drug therapy; Z79.01 Long term (current) use of anticoagulants; Z79.02 Long term (current) use of antithrombotics/antiplatelets; Z98.61 Coronary angioplasty status
CPT/HCPCS: 36415; 36600; 71045; 71250; 76604; 78582; 80048; 80053; 80061; 80307; 81001; 82306; 82607; 82746; 82805; 82962; 83010; 83540; 83550; 83605; 83615; 83690; 83735; 83880; 83986; 84100; 84443; 84484; 85007; 85025; 85027; 85045; 85379; 85610; 85730; 86706; 86850; 86900; 86901; 87081; 87205; 87340; 89051; 90935; 92928; 92941; 93005; 93458; 99152; C1874; G0378; J1642; J1756; J1815; J2250; J2543; Q9967

== ENCOUNTER 2024-04-24 19:06 | Inpatient (IN) | payer MEDICAID ==
[~2024-04-24] VITALS: Ht 170.2 cm; Wt 59.9 kg
[~2024-04-24 19:06] MED LIST changes: -APIX2.5T PO; +ASPI-543 PO; -ATO40T PO; +ATOR-507 PO; +BUME2TAB5 PO; -CAR3125T PO; +CARV-214 PO; +CEPH500C PO; +CLON0.2T PO; +CLOP75TA70 PO; -FURO1TAB31 PO; -LISI20TA56 PO; +SACU1TAB7 PO; -SEVE800T PO; +SEVE800T8 PO
[2024-04-24 20:07] LABS: Hematocrit 31.1 % (41.0-53.0); Hemoglobin 10.3 g/dL (13.5-17.5); Mean Corpuscular Hemoglobin 31.2 pg (28.0-32.0); Mean Corpuscular Volume 94.3 fL (80.0-100.0); Platelet Count (auto) 166 10^3/uL (140-450); Red Blood Cells 3.29 10^6/uL (4.5-5.90); Red Cell Distribution Width 14.8 % (11.8-14.3); White Blood Cell 7.7 10^3/uL (4.4-10.8)
[2024-04-24 20:09] LABS: Basophils % (manual) 0 (0.0-2.0); Metamyelocytes % 0; Myelocytes % 0; Promyelocytes % 0
[2024-04-24 20:11] LABS: Blast Cells 0; Reactive Lymphocytes 0
[2024-04-24 20:25] LABS: Chloride 101 mmol/L (98-107); Potassium 5.5 mmol/L (3.5-5.1); Sodium 136 mmol/L (136-145)
[2024-04-24 20:26] LABS: Anion Gap 6 (5-15); Calcium 9.7 mg/dL (8.7-10.4); Carbon Dioxide 29 mmol/L (20-30); Eosinophils % (manual) 12 (0-7); Lymphocytes % (manual) 15 (10.0-50.0); Monocytes % (manual) 7 (0-12)
[2024-04-24 20:27] LABS: Band Neutrophils % (manual) 2; Platelet Estimate Adequate
[2024-04-24 20:31] LABS: BUN/Creatinine Ratio 5.4 (10.0-20.0); Blood Urea Nitrogen 41 mg/dL (9-23); Glucose 227 mg/dL (74-106)
[2024-04-25] MEDS ORDERED: ONDANSETRON HCL 4 MG/2 ML VIAL IV PRN ×2 (00:30→15:00)
[2024-04-25] MEDS ORDERED: ACETAMINOPHEN 325 MG TAB PO PRN (00:30)
[2024-04-25] MEDS ORDERED: DEXTROSE (50%) 50ML SYRG IV PRN (00:30)
[2024-04-25] MEDS ORDERED: HYDROcodone-ACET 5/325MG TAB PO PRN ×2 (00:30→15:00)
[2024-04-25 02:30] VITALS: PULSE 63; RESP 14; O2SAT 93
[2024-04-25] MEDS: SODIUM BICARB 8.4% 50Meq/50ml SYR Vial IV ONE (03:02)
[2024-04-25] MEDS: CALCIUM GLUC 1,000mg/50ml-NS 50 ML IV ONE (03:02)
[2024-04-25] MEDS: InsuLIN REG 1unit/0.01ml Soln (100units/ml) IV ONE (03:03)
[2024-04-25] MEDS: ACCU-CHEK COMFORT CURVE STRIP VI SCH (06:53)
[2024-04-25] MEDS: InsuLIN REG 1unit/0.01ml Soln (100units/ml) SC SCH (06:53)
[2024-04-25 07:30] VITALS: PULSE 65; RESP 10; O2SAT 100
[2024-04-25] MEDS: SEVELAMER 800 MG TAB PO SCH (08:16)
[2024-04-25 09:00] LABS: Chloride 105 mmol/L (98-107); Potassium 4.4 mmol/L (3.5-5.1); Sodium 141 mmol/L (136-145)
[2024-04-25 09:01] LABS: Anion Gap 8 (5-15); Calcium 9.4 mg/dL (8.7-10.4); Carbon Dioxide 28 mmol/L (20-30)
[2024-04-25 09:06] LABS: BUN/Creatinine Ratio 5.7 (10.0-20.0); Blood Urea Nitrogen 49 mg/dL (9-23); Glucose 86 mg/dL (74-106)
[2024-04-25 09:30] LABS: Hematocrit 31.3 % (41.0-53.0); Hemoglobin 10.4 g/dL (13.5-17.5); Mean Corpuscular Hemoglobin 31.6 pg (28.0-32.0); Mean Corpuscular Hgb Conc. 33.2 g/dL (32.0-36.0); Mean Corpuscular Volume 95.2 fL (80.0-100.0); Platelet Count (auto) 162 10^3/uL (140-450); Red Blood Cells 3.29 10^6/uL (4.5-5.90); Red Cell Distribution Width 14.8 % (11.8-14.3); White Blood Cell 9.5 10^3/uL (4.4-10.8)
[2024-04-25 09:39] LABS: Basophils % (manual) 0 (0.0-2.0); Blast Cells 0; Metamyelocytes % 0; Myelocytes % 0; Promyelocytes % 0; Reactive Lymphocytes 0
[2024-04-25] MEDS: APIXABAN 2.5 MG TAB PO SCH (09:46)
[2024-04-25] MEDS: CLOPIDOGREL BISULFATE 75 MG TAB PO SCH (09:46)
[2024-04-25] MEDS: ASPirin 81 mg TAB PO SCH (09:52)
[2024-04-25] MEDS: FUROSEMIDE 40 MG TAB PO SCH (09:52)
[2024-04-25 10:36] LABS: % Iron Saturation 56.3 % (20-55)
[2024-04-25] MEDS: SODIUM CHL 0.9% 1000 ML BAG XX ONE (10:39)
[2024-04-25 10:50] LABS: Band Neutrophils % (manual) 3; Eosinophils % (manual) 17 (0-7); Lymphocytes % (manual) 19 (10.0-50.0); Monocytes % (manual) 4 (0-12); Platelet Estimate Adequate
[2024-04-25 14:10] VITALS: BP 166/92; PULSE 116; RESP 18; TEMP 98.2; O2SAT 98
[2024-04-25 14:27] VITALS: BP 166/92; PULSE 116; RESP 18; TEMP 98.2; O2SAT 98
[2024-04-25] MEDS ORDERED: MORPHINE SULFATE INJ 2 MG/ml SYRG IV PRN (15:00)
[2024-04-25] MEDS ORDERED: ACETAMINOPHEN 500 MG TAB PO PRN (15:00)
[2024-04-25] MEDS: METOCLOPRAMIDE HCL 5MG/ml INJ 2ml VIAL IV ONE (15:00)
[2024-04-25 16:54] VITALS: BP 132/83; PULSE 73; RESP 14; TEMP 97.6; O2SAT 94
[2024-04-25] MEDS ORDERED: EPOETIN ALFA-EPBX 4,000 UNIT/ML VIAL SC ONE (21:00)
[2024-04-25] MEDS: EPOETIN ALFA-EPBX 10,000 UNIT/1ML VIAL SC ONE (21:25)
[2024-04-25] MEDS: ATORVASTATIN 20 MG TAB PO SCH (21:26)
[2024-04-25 21:29] VITALS: BP 116/71; PULSE 80; RESP 18; TEMP 98.6; O2SAT 97
[2024-04-26 01:28] VITALS: BP 105/69; PULSE 72; RESP 18; TEMP 98.4; O2SAT 97
[2024-04-26 04:58] LABS: Hematocrit 32.2 % (41.0-53.0); Hemoglobin 11.1 g/dL (13.5-17.5); Mean Corpuscular Hemoglobin 32.8 pg (28.0-32.0); Mean Corpuscular Hgb Conc. 34.3 g/dL (32.0-36.0); Mean Corpuscular Volume 95.6 fL (80.0-100.0); Platelet Count (auto) 167 10^3/uL (140-450); Red Blood Cells 3.37 10^6/uL (4.5-5.90); Red Cell Distribution Width 14.3 % (11.8-14.3); White Blood Cell 7.7 10^3/uL (4.4-10.8)
[2024-04-26 05:00] VITALS: BP 97/71; PULSE 74; RESP 18; TEMP 98.2; O2SAT 99
[2024-04-26 05:05] LABS: Band Neutrophils % (manual) 0; Basophils % (manual) 0 (0.0-2.0); Blast Cells 0; Metamyelocytes % 0; Myelocytes % 0; Promyelocytes % 0; Reactive Lymphocytes 0
[2024-04-26 05:29] LABS: Alanine Aminotransferase 29 U/L (7-40); Albumin 4.2 g/dL (3.2-4.8); Alkaline Phosphatase 184 U/L (46-116); Anion Gap 8 (5-15); Aspartate Aminotransferase 18 U/L (13-40); BUN/Creatinine Ratio 5.1 (10.0-20.0); Bilirubin, Total 0.4 mg/dL (0.2-1.0); Blood Urea Nitrogen 35 mg/dL (9-23); Calcium 9.7 mg/dL (8.7-10.4); Carbon Dioxide 30 mmol/L (20-30); Chloride 100 mmol/L (98-107); Glucose 103 mg/dL (74-106); Potassium 4.1 mmol/L (3.5-5.1); Sodium 138 mmol/L (136-145); Total Protein 7.8 g/dL (5.7-8.2)
[2024-04-26 06:30] LABS: Eosinophils % (manual) 18 (0-7); Lymphocytes % (manual) 28 (10.0-50.0); Monocytes % (manual) 4 (0-12); Platelet Estimate Adequate
[2024-04-26 08:00] VITALS: PULSE 87; RESP 17; O2SAT 99
[2024-04-26 08:46] VITALS: BP 119/72; PULSE 87; RESP 17; TEMP 98.1; O2SAT 99
[2024-04-26] MEDS ORDERED: APIX2.5T PO (10:27)
[2024-04-26] MEDS ORDERED: FURO40TA4 PO (10:27)
[2024-04-26 13:00] VITALS: BP 120/69; PULSE 74; RESP 20; TEMP 98.7; O2SAT 96
[2024-04-26] MEDS ORDERED: METF500S3 PO (13:02)
[2024-04-26] MEDS ORDERED: METO5TAB67 PO (13:02)
[2024-04-26 13:59] VITALS: BP 119/72; TEMP 37.1
[2024-04-26] MEDS ORDERED: glipiZIDE 5 MG TAB PO SCH (18:00)
== END 2024-04-26 16:10 | disposition home or self-care (01) | DRG 48 ==
LOC: ER 19:06 → OVERFLOW 04-25 00:32 → WEST WING 04-25 14:10
PROVIDERS: ADMIT Nurse Practitioner; ATTEND Nurse Practitioner Acute Care
DX: E11.43 Type 2 diabetes mellitus with diabetic autonomic (poly)neuropathy (principal); I21.A1 Myocardial infarction type 2; N18.6 End stage renal disease; D63.1 Anemia in chronic kidney disease; E86.9 Volume depletion, unspecified; K80.20 Calculus of gallbladder without cholecystitis without obstruction; E87.5 Hyperkalemia; E11.22 Type 2 diabetes mellitus with diabetic chronic kidney disease; E11.40 Type 2 diabetes mellitus with diabetic neuropathy, unspecified; E78.5 Hyperlipidemia, unspecified; E87.6 Hypokalemia; I25.10 Atherosclerotic heart disease of native coronary artery without angina pectoris; I50.9 Heart failure, unspecified; K31.84 Gastroparesis; Z99.2 Dependence on renal dialysis; Z95.5 Presence of coronary angioplasty implant and graft; Z79.84 Long term (current) use of oral hypoglycemic drugs; Z79.01 Long term (current) use of anticoagulants; Z86.718 Personal history of other venous thrombosis and embolism
CPT/HCPCS: 36415; 76705; 80048; 80053; 82306; 82962; 83036; 83540; 83550; 83605; 83880; 83970; 84484; 85007; 85027; 86850; 86900; 86901; 90935; 96365; 96375; 99291; G0378; J1815

== ENCOUNTER → 2024-05-28 | Outpatient (CLI) | payer MEDICARE, MEDICAID ==
[~2024-05-28] MED LIST changes: +APIX2.5T PO; -ASPI-543 PO; -BUME2TAB5 PO; -CEPH500C PO; +FURO40TA4 PO; +METF500S3 PO; +METO5TAB67 PO
[2024-05-28 10:30] VITALS: BP 138/74; PULSE 75; RESP 16; O2SAT 99
[2024-05-28 10:45] VITALS: BP 146/82; PULSE 76; RESP 18; O2SAT 99
== END | disposition home or self-care (01) ==
LOC: Rad HDHVI 10:05
PROVIDERS: ATTEND Internal Medicine Cardiovascular Disease
DX: Z01.818 Encounter for other preprocedural examination (principal); R91.8 Other nonspecific abnormal finding of lung field
CPT/HCPCS: 71046; 93005; G0463

== ENCOUNTER → 2024-05-29 | Outpatient (CLI) | payer MEDICARE, MEDICAID ==
[~2024-05-29] MED LIST changes: -APIX2.5T PO; -METO5TAB67 PO
== END | disposition home or self-care (01) ==
LOC: LAB 14:47
PROVIDERS: ATTEND Internal Medicine Cardiovascular Disease
DX: R94.4 Abnormal results of kidney function studies (principal)
CPT/HCPCS: 36415; 82565; 84520

== ENCOUNTER → 2024-05-30 | Outpatient (CLI) | payer MEDICARE, MEDICAID ==
[~2024-05-30] MED LIST changes: +IOHEXOL 350 MG/ML 100ML IJ ONE
[2024-05-30 09:40] VITALS: BP 151/79; PULSE 70; RESP 16; O2SAT 96
[2024-05-30 10:03] VITALS: BP 148/85; PULSE 71; RESP 16; O2SAT 96
== END | disposition home or self-care (01) ==
LOC: Rad HDHVI 09:24
PROVIDERS: ATTEND Internal Medicine Cardiovascular Disease
DX: Z01.811 Encounter for preprocedural respiratory examination (principal); R07.9 Chest pain, unspecified; R91.8 Other nonspecific abnormal finding of lung field; J98.11 Atelectasis; R06.02 Shortness of breath; R93.89 Abnormal findings on diagnostic imaging of other specified body structures
CPT/HCPCS: 71260; G0463; Q9967

== ENCOUNTER → 2024-06-19 | Outpatient (CLI) | payer MEDICARE, MEDICAID ==
[~2024-06-19] MED LIST changes: -IOHEXOL 350 MG/ML 100ML IJ ONE
[2024-06-19 10:00] VITALS: BP 138/69; PULSE 70; RESP 18; O2SAT 97
[2024-06-19 10:20] VITALS: BP 137/71; PULSE 69; RESP 18; O2SAT 97
== END | disposition home or self-care (01) ==
LOC: Rad HDHVI 09:56
PROVIDERS: ATTEND Internal Medicine Cardiovascular Disease
DX: Z01.818 Encounter for other preprocedural examination (principal); I25.10 Atherosclerotic heart disease of native coronary artery without angina pectoris; I50.23 Acute on chronic systolic (congestive) heart failure
CPT/HCPCS: 71046; 93005; G0463

== ENCOUNTER 2024-06-27 07:52 | Day surgery (SDC) | payer MEDICARE, MEDICAID ==
[2024-06-19 12:39] LABS: Hematocrit 40.3 % (41.0-53.0); Hemoglobin 13.7 g/dL (13.5-17.5); Mean Corpuscular Hemoglobin 34.1 pg (28.0-32.0); Mean Corpuscular Volume 100.4 fL (80.0-100.0); Platelet Count (auto) 144 10^3/uL (140-450); Red Blood Cells 4.02 10^6/uL (4.5-5.90); Red Cell Distribution Width 14.4 % (11.8-14.3); White Blood Cell 7.2 10^3/uL (4.4-10.8)
[2024-06-19 12:43] LABS: Band Neutrophils % (manual) 0; Basophils % (manual) 0 (0.0-2.0); Blast Cells 0; Metamyelocytes % 0; Myelocytes % 0; Promyelocytes % 0; Reactive Lymphocytes 0
[2024-06-19 12:51] LABS: Chloride 100 mmol/L (98-107); Potassium 5.3 mmol/L (3.5-5.1); Sodium 136 mmol/L (136-145)
[2024-06-19 12:52] LABS: Anion Gap 6 (5-15); Calcium 9.7 mg/dL (8.7-10.4); Carbon Dioxide 30 mmol/L (20-31)
[2024-06-19 12:55] LABS: INR 1.01 (0.9-1.15); Partial Thromboplastin Time 28.8 SEC (24.5-34.5); Prothrombin Time 10.7 sec (9.3-11.8)
[2024-06-19 12:57] LABS: BUN/Creatinine Ratio 4.7 (10.0-20.0); Blood Urea Nitrogen 37 mg/dL (9-23); Glucose 172 mg/dL (74-106)
[2024-06-19 13:10] LABS: Eosinophils % (manual) 24 (0-7); Lymphocytes % (manual) 15 (10.0-50.0); Monocytes % (manual) 4 (0-12); Platelet Estimate Adequate
[~2024-06-27] VITALS: Ht 165.1 cm; Wt 59.9 kg
[2024-06-27] MEDS ORDERED: VANCOMYCIN HCL 1000 MG VL ONE (11:13)
[2024-06-27] MEDS ORDERED: fentaNYL CITRATE 100 MCG/2 ML VL ONE (11:13)
[2024-06-27] MEDS ORDERED: MIDAZOLAM HCL 2MG/2ML 2ml VIAL (1mg/ml) ONE (11:13)
[2024-06-27] MEDS ORDERED: LIDOCAINE 2%HCL (LOCAL ANESTH.) INJ 20ML MDV ONE (11:14)
[2024-06-27] MEDS ORDERED: VANCOMYCIN 1GM/200ML PREMIX 200 ML IV ONE (11:14)
[2024-06-27] MEDS ORDERED: IODIXANOL 320MG/ML 100ML BTL IV ONE (11:22)
[2024-06-27] MEDS ORDERED: methylPREDNISolone SOD SUCC 125 MG/2 ML VL ONE (11:34)
[2024-06-27] MEDS ORDERED: FAMOTIDINE (10MG/ML) 2ML VL IV ONE (11:35)
[2024-06-27] MEDS ORDERED: diphenhdrAMINE HCL 50 MG/1 ML VL ONE (11:35)
[2024-06-27] MEDS ORDERED: NITROGLYCERIN 0.4MG/DOSE SPRAY 4.9GM ONE (11:38)
[2024-06-27] MEDS: ACETAMINOPHEN 500 MG TAB PO ONE (15:25)
== END 2024-06-27 16:05 | disposition home or self-care (01) ==
LOC: CATH 07:52
PROVIDERS: ATTEND Internal Medicine Cardiovascular Disease
DX: I25.5 Ischemic cardiomyopathy (principal); I42.0 Dilated cardiomyopathy; I11.0 Hypertensive heart disease with heart failure; I13.2 Hypertensive heart and chronic kidney disease with heart failure and with stage 5 chronic kidney disease, or end stage renal disease; I50.21 Acute systolic (congestive) heart failure; E11.22 Type 2 diabetes mellitus with diabetic chronic kidney disease; N18.6 End stage renal disease; E78.5 Hyperlipidemia, unspecified; R00.1 Bradycardia, unspecified; Z79.84 Long term (current) use of oral hypoglycemic drugs; Z79.899 Other long term (current) drug therapy; Z99.2 Dependence on renal dialysis; Z95.5 Presence of coronary angioplasty implant and graft; Z98.890 Other specified postprocedural states
CPT/HCPCS: 33225; 33249; 36415; 71045; 80048; 85007; 85027; 85610; 85730; C1730; C1769; C1777; C1882; C1887; C1894; C1898; C1900; J2250; J3010; J3370; Q9967; 99152; J3490

== ENCOUNTER → 2024-06-28 | Outpatient (CLI) | payer MEDICARE, MEDICAID | END | disposition home or self-care (01) | LOC: Rad HDHVI 14:56 | PROVIDERS: ATTEND Internal Medicine Cardiovascular Disease | DX: J84.10 Pulmonary fibrosis, unspecified (principal); R06.02 Shortness of breath | CPT/HCPCS: 71046 ==